=== PATIENT | female | born 1975 | race Caucasian/White ===

== ENCOUNTER 2021-02-27 10:45 | Inpatient (IN) | payer OTHER ==
--- OUTSIDE RECORDS SUMMARY | 2021-02-27 10:50 | XMS REPORT | Continuity of Care Document ---
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[facility] rhinitis [facility] Acute Acute Problem Active [facility] urinary Urinary da tract [facility] Medical infection Infection Grou p Urinary Urinary Problem Active [facility] tract Tract da infectious Infectious Me dical disease Disease Group Fatigue Fatigue Problem Active [facility] Allergies, Adverse Reactions, Alerts Allergy Allergy Status Severity Reaction(s) Onset Inactive Treating Comm ents Source Name Type Date Date Clinician Ultram Allergy Active Itching [facility] Social History Smoking Status Start Date Stop Date Source Never Smoker [facility] Medications Ordered Filled Start Stop Current Ordering Indication Dosage Frequency Signature Comments Components Source Medication Medication Date Date Medication? Clinician (SIG) Name Name citalopram citalopram No citalopram [facility] 20 mg 20 mg 20 mg da tablet TAKE tablet TAKE tablet Medical 1 TABLET BY 1 TABLET BY TAKE 1 Group MOUTH ONCE MOUTH ONCE TABLET BY DAILY DAILY MOUTH ONCE DAILY citalopram citalopram No 1 Q1D citalopram [facility] 40 mg 40 mg 40 mg da tablet Take tablet Take tablet Medical 1 tablet 1 tablet Take 1 Group every day every day tablet by oral by oral every day route. route. by oral route. levothyroxi levothyroxi No levothyrox [facility] ne 75 mcg ne 75 mcg ine 75 mcg da tablet TAKE tablet TAKE tablet Medical 1 TABLET BY 1 TABLET BY TAKE 1 Group MOUTH ONCE MOUTH ONCE TABLET BY DAILY DAILY MOUTH ONCE DIRECTED DIRECTED DAILY DIRECTED metformin metformin No metformin [facility] ER 500 mg ER 500 mg ER 500 mg da tablet,exte tablet,exte tablet,ext Medical nded nded ended Group release 24 release 24 release 24 hr Take 1 hr Take 1 hr Take 1 tablet tablet tablet every day every day every day by oral by oral by oral route. route. route. topiramate topiramate No 1 BID topiramate [facility] 50 mg 50 mg 50 mg da tablet Take tablet Take tablet Medical 1 tablet 1 tablet Take 1 Group twice a day twice a day tablet by oral by oral twice a route. route. day by oral route. Vital Signs Vital Name Observation Time Observation Value Comments Source BP Diastolic 2020-05-16 00:00:00 89 mm[Hg] [facility] Height 2020-05-16 00:00:00 61 [in_i] [facility] BMI (Body Mass 2020-05-16 00:00:00 57.4 kg/m2 [facility] Medical Index) Group BP Systolic 2020-05-16 00:00:00 132 mm[Hg] [facility] Body Weight 2020-05-16 00:00:00 4864 [oz_av] [facility] BP Diastolic 2019-10-27 00:00:00 74 mm[Hg] [facility] Height 2019-10-27 00:00:00 61 [in_i] [facility] BMI (Body Mass 2019-10-27 00:00:00 58.2 kg/m2 [facility] Medical Index) Group BP Systolic 2019-10-27 00:00:00 123 mm[Hg] [facility] Body Weight 2019-10-27 00:00:00 4928 [oz_av] [facility] BP Diastolic 2019-05-13 00:00:00 77 mm[Hg] [facility] Height 2019-05-13 00:00:00 61 [in_i] [facility] BMI (Body Mass 2019-05-13 00:00:00 55.6 kg/m2 [facility] Medical Index) Group BP Systolic 2019-05-13 00:00:00 121 mm[Hg] [facility] Body Weight 2019-05-13 00:00:00 4704 [oz_av] [facility] Procedures Procedure Date / Time Performing Clinician Source Performed MAMMO, screening, digital, 2020-05-16 00:00:00 [facility] MAMMO, screening, digital, 2019-10-27 00:00:00 [facility] Cholecystectomy 2006-08-18 00:00:00 Kat Velazco Plan of Care Planned Activity Planned Date Details Comments Source Diagnostic Test 2020-05-16 BMP, serum or [facility] 00:00:00 plasma [code = BMP, Group serum or plasma] Diagnostic Test 2020-05-16 hemoglobin A1c, QN, [facility] 00:00:00 blood [code = Group hemoglobin A1c, QN, blood] Diagnostic Test 2020-05-16 TSH, serum or [facility] 00:00:00 plasma [code = TSH, Group serum or plasma] Instructions [facility] Encounters Start End Encounter Admission Attending Care Care Encounter Source Date/Time Date/Time Type Type Clinicians Facility Department ID 2020-05-16 2020-05-16 [facility] [place] - [id number] [facility] 00:00:00 00:00:00 Discovery tino Duncan TOLL BOOTH OPERATOR: [address] [place], [place] [address] [facility] [address], [facility] [place] [address] , Ph. 2019-10-27 2019-10-27 Laura [facility] [place] - [id number] M [facility] 00:00:00 00:00:00 Discovery tino Duncan TOLL BOOTH OPERATOR: [address] [place], [place] [address] [facility] [address], [place] [address] , Ph. 2019-05-13 2019-05-13 Laura [facility] [place] - [id number] M [facility] 00:00:00 00:00:00 Discovery tino Duncan TOLL BOOTH OPERATOR: [address] [place] [place] [address] [facility] [address], [place] [address] , Ph. Results This patient has no known results.
[2021-02-27] MEDS ORDERED: ALBUTEROL INHALER 60 PUFF/8 GM IH ONE (11:43)
[2021-02-27] MEDS ORDERED: METHYLPREDNISOLONE 125 MG INJ ONE ×2 (11:43→20:30)
[2021-02-27] MEDS ORDERED: NA CHLORIDE 0.9% 1,000 ML ONE (11:46)
--- NOTE | 2021-02-27 12:10 | RAD REPORT ---
EXAM DESCRIPTION: [facility] Single View02/27/2021 11:45 am CLINICAL HISTORY: Cough COMPARISON: none FINDINGS: Tyyo-wv-zetffeds bilateral pulmonary opacities. Heart is mildly enlarged IMPRESSION: Mild to moderate bilateral pulmonary opacities may represent pneumonia or pulmonary madelin a
[2021-02-27 12:13] LABS: Absolute Lymphocytes (CBC) 0.9 K/uL (0.7-4.9); Basophils % 0.6 % (0-1.3); Hematocrit 42.5 % (36.0-45.0); Lymphocytes % 14.6 % (15.3-44.8); MPV 8.2 fL (7.6-11.3); RBC Red Blood Cell Count 5.05 M/uL (3.86-4.86)
[2021-02-27 12:19] LABS: Protime INR 1.17
[2021-02-27 12:50] LABS: Albumin 3.3 g/dL (3.4-5.0); Bilirubin Direct 0.1 mg/dL (0-0.2); Bilirubin Total 0.3 mg/dL (0.2-1.0); C-Reactive Protein 78.1 mg/L (<3.00); Magnesium 2.1 mg/dL (1.8-2.4); Potassium 3.3 mmol/L (3.5-5.1); Protein, Total 8.3 g/dL (6.4-8.2); Troponin (Emerg Dept Use Only) 0.03 ng/mL (0.0-0.045)
[2021-02-27] MEDS ORDERED: POTASSIUM 25 MEQ EFFERV TAB ONE (13:22)
--- NOTE | 2021-02-27 13:43 | RAD REPORT ---
EXAM DESCRIPTION: CT - Chest For Pe Angio - 02/27/2021 1:20 pm CLINICAL HISTORY: Cough and shortness of breath COMPARISON: February 27, 2021 chest x-ray TECHNIQUE: Dynamically enhanced axial 3 mm thick images of the chest were obtained during administra tion of <100> mL Isovue 370 IV contrast. Coronal and oblique reconstruction images were generated and reviewed. Exam utilizes a protocol for optimal evaluation of pulmonary arterial tree. Maximum intensity projections 3D imaging was utilized All CT scans are performed using dose optimization technique as appropriate and may include automated exposure control or mA/KV adjustment according to patient size. FINDINGS: A pulmonary embolus is not seen. A thoracic aortic aneurysm is not noted. A pleural effusion is not seen. A pericardial effusion is not seen. Moderate patchy ground-glass opacities within the lungs IMPRESSION: Negative for a pulmonary embolism. Moderate patchy ground-glass opacities within the lungs can be seen with pneumonia can be seen with C ovid pneumonia
--- NOTE | 2021-02-27 15:06 | ER ---
[facility] Age: 45 yrs Sex: Female : 1975 Arrival Date: 02/27/2021 Time: 10:49 Bed 27 Private MD: Karissa Castellanos K Diagnosis: Pneumonia due to SARS-associated coronavirus Presentation: 02/27 10:57 Chief complaint: Cough, congestion, SOB, N/V/D, and body aches x 5-6 days, family is hb COVID +. Coronavirus screen: Client presents with at least one sign or symptom that may indicate coronavirus-19. Standard/surgical mask placed on the client. Provider contacted for isolation considerations. Ebola Screen: No symptoms or risks identified at this time. Initial Sepsis Screen: Does the patient meet any 2 criteria? RR > 20 per min. HR > 90 bpm. Yes Does the patient have a suspected source of infection? No. Patient's initial sepsis screen is negative. Risk Assessment: Do you want to hurt yourself or someone else? Patient reports no desire to harm self or others. Onset of symptoms was February 22, 2021. 10:57 Method Of Arrival: Wheelchair hb 10:57 Acuity: JU 2 hb Historical: - Allergies: 10:58 No Known Allergies; hb - Immunization history:: Adult Immunizations up to date. - Social history:: Smoking status: Patient denies any tobacco usage or history of. Screenin:00 Abuse screen: Denies threats or abuse. Nutritional screening: No deficits noted. vg1 Tuberculosis screening: No symptoms or risk factors identified. Fall Risk No fall in past 12 months (0 pts). No secondary diagnosis (0 pts). No IV (0 pts). Ambulatory Aid- None/Bed Rest/Nurse Assist (0 pts). Gait- Normal/Bed Rest/Wheelchair (0 pts) Mental Status- Oriented to own ability (0 pts). Total Morris Fall Scale indicates No Risk (0-24 pts). Assessment: 11:00 General: Appears in no apparent distress. uncomfortable, Behavior is calm, cooperative. vg1 Pain: Complains of pain in lower back Pain currently is 3 out of 10 on a pain scale. Pain began 2-3 days ago. Noted to be grimacing. Neuro: Level of Consciousness is awake, alert, obeys commands, Oriented to person, place, time, situation. Respiratory: Reports shortness of breath cough that is productive, Airway is patent Respiratory effort is even, unlabored, Respiratory pattern is tachypnea Breath sounds are coarse in left posterior lower lobe. GI: Reports diarrhea, nausea, vomiting. : No signs and/or symptoms were reported regarding the genitourinary system. EENT: No signs and/or symptoms were reported regarding the EENT system. Derm: Skin is intact, is healthy with good turgor. Musculoskeletal: Circulation, motion, and sensation intact. 12:04 Reassessment: Patient appears in no apparent distress at this time. blood work sent to lab at this time. Awaiting results. Call light remains within reach. 13:10 Reassessment: Patient appears in no apparent distress at this time. No changes from vg1 previously documented assessment. Patient and/or family updated on plan of care and expected duration. Pain level reassessed. Patient is alert, oriented x 3, equal unlabored respirations, skin warm/dry/pink. 14:04 Reassessment: Received Verbal consent from pt to be given SOLU-medrol 125 mg IVP x1. vg1 14:08 Reassessment: Patient appears in no apparent distress at this time. Patient and/or vg1 family updated on plan of care and expected duration. Pain level reassessed. Patient is alert, oriented x 3, equal unlabored respirations, skin warm/dry/pink. 14:25 Reassessment: Ambulated patient O2 decreased to 90% RA; patient stated felt tired. vg1 Resting O2 95% RA; Provider notified. 15:08 Reassessment: Dr Womack at pt bedside. vg1 Vital Signs: 10:57 BP 130 / 85; Pulse 93; Resp 32; Temp 98.3; Pulse Ox 92% on R/A; Pain 5/10; hb 12:04 BP 118 / 79; Pulse 92; Resp 21; Pulse Ox 94% on R/A; ss 12:30 BP 117 / 81; Pulse 90; Resp 22; Pulse Ox 94% on R/A; vg1 14:08 BP 118 / 73; Pulse 90; Resp 22; Pulse Ox 93% on R/A; vg1 ED Course: 10:49 Patient arrived in ED. mr 10:49 Karissa Castellanos MD is Private Physician. mr 10:52 Florencio Silva PA is PHCP. cp 10:52 Dharmesh Watson MD is Attending Physician. cp 10:54 Francy Perry RN is Primary Nurse. vg1 10:58 Triage completed. hb 10:58 Arm band placed on. hb 11:00 Patient has correct armband on for positive identification. Bed in low position. Call vg1 light in reach. Side rails up X 1. Adult w/ patient. 11:45 XRAY Chest (1 view) In Process Unspecified. EDMS 11:53 Initial lab(s) drawn, by mo, sent to lab. Inserted saline lock: 22 gauge in right vg1 antecubital area, using aseptic technique. Blood collected. 12:02 COVID swab sent to lab. vg1 13:20 CT Chest For PE Angio In Process Unspecified. EDMS 14:56 Beny Womack DO is Hospitalizing Provider. cp 17:12 No provider procedures requiring assistance completed. Patient admitted, IV remains in vg1 place. 17:13 Report given to TRINI Randall. vg1 19:16 Primary Nurse role handed off by Francy Perry, TRINI mw2 02/28 10:10 Inserted saline lock: 22 gauge in left forearm, using aseptic technique. [facility] 03/03 21:00 Called [facility] Main and was transferred to the Covid Unit. Spoke with Carol about tt3 initiating a transfer and she took our number and stated she would speak with their nursing supervisor crack off and have them call us back. Information passed on to JJ Potter, Hospitalist. Administered Medications: 02/27 12:01 Drug: Albuterol HFA Inhaler 2 puffs Route: Inhalation; vg1 14:08 Follow up: Response: No adverse reaction vg1 12:01 Drug: NS 0.9% 1000 ml Route: IV; Rate: 1000 ml/hr; Site: right antecubital; vg1 14:02 Follow up: IV Status: Completed infusion; IV Intake: 1000ml vg1 13:11 Drug: Potassium Effervescent Tablet 50 mEq Route: PO; vg1 14:07 Follow up: Response: No adverse reaction vg1 14:06 Drug: SOLU-Medrol (methylPrednisoLONE) 125 mg Route: IVP; Site: right antecubital; vg1 15:17 Follow up: Response: No adverse reaction vg1 Intake: 14:02 IV: 1000ml; Total: 1000ml. vg1 Outcome: 15:05 Decision to Hospitalize by Provider. cp 17:12 Admitted to ER Hold. Please see [facility] for further documentation. vg1 17:12 Condition: stable 17:12 Instructed on the need for admit. 03/04 15:25 Patient left the ED. eb Signatures: Dispatcher [employer] [facility] Lisette SaucedoLor mckeon, RN RN Florencio Capone PA PA cp Baxter, Heather, RN RN Odilia Hammonds [address] Zehra Garcia Victoria, RN RN vg1 Perry Vo tt3 Corrections: (The following items were deleted from the chart) 02/27 14:30 14:25 Reassessment: Ambulated patient O2 decreased to 90% RA; patient stated felt vg1 tired. Provider notified. vg1
--- NOTE | 2021-02-27 15:06 | EDPHYS ---
Physician Documentation [facility] Name: Margot Abdalla Age: 45 yrs Sex: Female : 1975 Arrival Date: 02/27/2021 Time: 10:49 Bed 27 Private MD: Karissa Castellanos K ED Physician Dharmesh Watson HPI: 02/27 11:10 This 45 yrs old Female presents to ER via Wheelchair with complaints of cp COVID+, Shortness Of Breath. 11:10 The patient has shortness of breath at rest. cp 11:10 Onset: The symptoms/episode began/occurred 5 day(s) ago, and became worse today. cp Duration: The symptoms are continuous, and are steadily getting worse. Associated signs and symptoms: Pertinent positives: non-productive cough, Pertinent negatives: chest pain, fever. Severity of symptoms: in the emergency department the symptoms are unchanged despite home interventions. Patient reports multiple family members recently diagnosed with COVID-19. Historical: - Allergies: 10:58 No Known Allergies; hb - Immunization history:: Adult Immunizations up to date. - Social history:: Smoking status: Patient denies any tobacco usage or history of. ROS: 11:15 Constitutional: Negative for body aches, chills, fever, poor PO intake. cp 11:15 Eyes: Negative for injury, pain, redness, and discharge. cp 11:15 ENT: Negative for ear pain, sore throat, difficulty swallowing, difficulty handling secretions. 11:15 Cardiovascular: Negative for chest pain, edema, palpitations. 11:15 Respiratory: Positive for cough, with no reported sputum, shortness of breath, Negative for wheezing. 11:15 Abdomen/GI: Negative for abdominal pain, nausea, vomiting, and diarrhea. 11:15 Back: Negative for radiated pain. 11:15 : Negative for urinary symptoms. 11:15 Neuro: Negative for altered mental status, headache, syncope, weakness. 11:15 All other systems are negative. Exam: 11:20 Constitutional: The patient appears in no acute distress, alert, awake, cp non-diaphoretic, non-toxic, well developed, well nourished, obese. 11:20 Head/Face: Normocephalic, atraumatic. cp 11:20 Eyes: Periorbital structures: appear normal, Conjunctiva: normal, no exudate, no injection, Sclera: no appreciated abnormality, Lids and lashes: appear normal, bilaterally. 11:20 ENT: External ear(s): are unremarkable, Nose: is normal, Mouth: Lips: moist, Oral mucosa: pink and intact, moist, Posterior pharynx: Airway: no evidence of obstruction, patent. 11:20 Neck: ROM/movement: is normal, is supple, no meningismus, no nuchal rigidity. 11:20 Chest/axilla: Inspection: normal, Palpation: is normal, no crepitus, no tenderness. 11:20 Cardiovascular: Rate: normal, Rhythm: regular, Edema: is not appreciated, JVD: is not appreciated. 11:20 Respiratory: the patient does not display signs of respiratory distress, Respirations: shallow respirations, that is mild, Breath sounds: bronchial sounds, that are mild, are heard diffusely, decreased breath sounds, that are mild, diffuse, wheezing: is not appreciated. 11:20 Abdomen/GI: Inspection: abdomen appears normal, Palpation: abdomen is soft and non-tender, in all quadrants. 11:20 Back: pain, is absent, ROM is normal. 11:20 Skin: no rash present. 11:20 Neuro: Orientation: to person, place \T\ time. Mentation: is normal, Motor: moves all fours, strength is normal. 11:40 ECG was reviewed by the Attending Physician. cp Vital Signs: 10:57 BP 130 / 85; Pulse 93; Resp 32; Temp 98.3; Pulse Ox 92% on R/A; Pain 5/10; hb 12:04 BP 118 / 79; Pulse 92; Resp 21; Pulse Ox 94% on R/A; ss 12:30 BP 117 / 81; Pulse 90; Resp 22; Pulse Ox 94% on R/A; vg1 14:08 BP 118 / 73; Pulse 90; Resp 22; Pulse Ox 93% on R/A; vg1 MDM: 11:00 Patient medically screened. cp 12:00 Differential diagnosis: bronchitis, flu, URI, pneumonia, pulmonary edema, Pulmonary cp Embolism Sepsis. 15:00 Data reviewed: vital signs, nurses notes, lab test result(s), EKG, radiologic studies, cp CT scan, plain films. 15:00 Test interpretation: by ED physician or midlevel provider: ECG, plain radiologic cp studies. Counseling: I had a detailed discussion with the patient and/or guardian regarding: the historical points, exam findings, and any diagnostic results supporting the discharge/admit diagnosis, lab results, radiology results, the need for further work-up and treatment in the hospital. Response to treatment: the patient's symptoms have mildly improved after treatment. 02/27 11:08 Order name: Basic Metabolic Panel; Complete Time: 12:55 cp 02/27 11:08 Order name: CBC with Diff; Complete Time: 12:26 cp 02/27 11:08 Order name: LFT's; Complete Time: 12:55 cp 02/27 11:08 Order name: Magnesium; Complete Time: 12:55 cp 02/27 11:08 Order name: NT PRO-BNP; Complete Time: 12:55 cp 02/27 11:08 Order name: PT-INR; Complete Time: 12:55 cp 02/27 11:08 Order name: Troponin (emerg Dept Use Only); Complete Time: 12:55 cp 02/27 11:08 Order name: CRP; Complete Time: 12:55 cp 02/27 11:08 Order name: Ferritin; Complete Time: 12:55 cp 02/27 11:09 Order name: D-Dimer; Complete Time: 12:55 cp 02/27 13:57 Order name: SARS-COV-2 RT PCR; Complete Time: 14:01 EDMS 02/27 18:02 Order name: Urine Dipstick-Ancillary EDMS 02/27 18:14 Order name: Glucose, Ancillary Testing EDMS 02/27 19:41 Order name: Glucose, Ancillary Testing EDMS 02/28 06:49 Order name: CBC with Automated Diff EDMS 02/28 06:49 Order name: Comprehensive Metabolic Panel EDMS 02/28 06:49 Order name: T4 Free EDMS 02/28 06:49 Order name: Magnesium EDMS 02/28 06:49 Order name: Thyroid Stimulating Hormone EDMS 02/28 08:54 Order name: Glucose, Ancillary Testing EDMS 02/28 12:00 Order name: Glucose, Ancillary Testing EDMS 02/28 16:10 Order name: Glucose, Ancillary Testing EDMS 02/28 20:03 Order name: Glucose, Ancillary Testing EDMS 03/01 04:09 Order name: CBC with Automated Diff EDMS 03/01 04:13 Order name: Comprehensive Metabolic Panel EDMS 03/01 04:13 Order name: Magnesium EDMS 03/01 05:24 Order name: Manual Differential EDMS 03/01 07:46 Order name: Glucose, Ancillary Testing EDMS 03/01 11:18 Order name: Glucose, Ancillary Testing EDMS 02/27 11:08 Order name: XRAY Chest (1 view); Complete Time: 12:26 cp 02/27 12:26 Interpretation: Report reviewed. cp 02/27 12:56 Order name: CT Chest For PE Angio; Complete Time: 14:01 cp 03/01 15:50 Order name: Hemoglobin A1c EDMS 03/01 16:20 Order name: Glucose, Ancillary Testing EDMS 03/01 21:21 Order name: Glucose, Ancillary Testing EDMS 03/02 05:17 Order name: CBC with Automated Diff EDMS 03/02 05:30 Order name: Basic Metabolic Panel EDMS 03/02 05:30 Order name: C-Reactive Protein EDMS 03/02 05:30 Order name: Ferritin EDMS 03/02 07:51 Order name: Glucose, Ancillary Testing EDMS 03/02 12:11 Order name: Glucose, Ancillary Testing EDMS 03/02 16:55 Order name: Glucose, Ancillary Testing EDMS 03/02 21:14 Order name: Glucose, Ancillary Testing EDMS 03/03 05:14 Order name: D-Dimer EDMS 03/03 06:00 Order name: CBC with Automated Diff EDMS 03/03 06:33 Order name: Comprehensive Metabolic Panel EDMS 03/03 06:33 Order name: NT PRO-BNP EDMS 03/03 06:33 Order name: C-Reactive Protein EDMS 03/03 06:33 Order name: Magnesium EDMS 03/03 06:33 Order name: Ferritin EDMS 03/03 08:08 Order name: Glucose, Ancillary Testing EDMS 03/03 08:11 Order name: Procalcitonin EDMS 03/03 12:01 Order name: Glucose, Ancillary Testing EDMS 03/03 17:21 Order name: Glucose, Ancillary Testing EDMS 03/03 21:49 Order name: Glucose, Ancillary Testing EDMS 03/04 06:26 Order name: CBC with Automated Diff EDMS 03/04 06:48 Order name: Comprehensive Metabolic Panel EDMS 03/04 06:48 Order name: C-Reactive Protein EDMS 03/04 06:48 Order name: Ferritin EDMS 03/04 07:56 Order name: Glucose, Ancillary Testing EDMS 03/04 08:21 Order name: Manual Differential EDNC 03/04 11:44 Order name: Glucose, Ancillary Testing EDNC 02/27 11:08 Order name: EKG; Complete Time: 11:09 cp 02/27 11:08 Order name: Cardiac monitoring; Complete Time: 11:41 cp 02/27 11:08 Order name: EKG - Nurse/Tech; Complete Time: 11:41 cp 02/27 11:08 Order name: IV Saline Lock; Complete Time: 12:01 cp 02/27 11:08 Order name: Labs collected and sent; Complete Time: 12:01 cp 02/27 11:08 Order name: O2 Per Protocol; Complete Time: 11:15 cp 02/27 11:08 Order name: O2 Sat Monitoring; Complete Time: 11:15 cp 02/27 11:08 Order name: Urine Dipstick-Ancillary (obtain specimen); Complete Time: 17:54 cp 02/27 11:08 Order name: Urine Test (obtain specimen); Complete Time: 17:54 cp 02/27 14:09 Order name: Misc. Order: ambulate patient with pulse ox; Complete Time: 14:25 cp 03/02 07:14 Order name: RAD EDMS 03/03 07:08 Order name: RAD EDMS EC:40 Rate is 92 beats/min. Rhythm is regular. CA interval is normal. QRS interval is normal. cp QT interval is normal. Interpreted by me. Reviewed by me. Administered Medications: 12:01 Drug: Albuterol HFA Inhaler 2 puffs Route: Inhalation; vg1 14:08 Follow up: Response: No adverse reaction vg1 12:01 Drug: NS 0.9% 1000 ml Route: IV; Rate: 1000 ml/hr; Site: right antecubital; vg1 14:02 Follow up: IV Status: Completed infusion; IV Intake: 1000ml vg1 13:11 Drug: Potassium Effervescent Tablet 50 mEq Route: PO; vg1 14:07 Follow up: Response: No adverse reaction vg1 14:06 Drug: SOLU-Medrol (methylPrednisoLONE) 125 mg Route: IVP; Site: right antecubital; vg1 15:17 Follow up: Response: No adverse reaction vg1 Disposition: 07/18 17:34 Co-signature as Attending Physician, Dharmesh Watson MD I agree with the assessment and rn plan of care. Attestation: The patient's history, exam findings, diagnostics, and a summary of any interventions or procedures was reviewed in detail with Florencio GARDNER. Disposition Summary: 02/27/21 15:05 Hospitalization Ordered Hospitalization Status: Inpatient Admission cp Provider: Beny Womack cp Condition: Stable cp Problem: new cp Symptoms: have improved cp Bed/Room Type: Standard cp Location: Intensive Care Unit(03/04/21 14:55) dw Room Assignment: 4-(03/04/21 14:55) dw Diagnosis - Pneumonia due to SARS-associated coronavirus cp Forms: - Medication Reconciliation Form cp - SBAR form cp Signatures: Dispatcher [employer] EDMS Radha Dumont, RN RN Dharmesh Torres MD MD rn Smirch, Shelby, RN RN ss Page, Corey, PA PA cp Baxter, Heather RN Francy Almazan RN RN vg1 Corrections: (The following items were deleted from the chart) 02/27 12:49 11:11 CORONAVIRUS+MR.LAB.BRZ ordered. EDNC EDMS 16:21 15:05 Telemetry/MedSurg (Inpatient) cp ss 16:21 15:05 cp ss 03/04 14:55 02/27 16:21 [facility] ER HOLD ss dw 03/04 14:55 02/27 16:21 ERHOLD- ss
--- NOTE | 2021-02-27 15:39 | P.HP ---
Certification for Inpatient Patient admitted to: Observation With expected LOS: <2 Midnights Patient will require the following post-hospital care: Other (Home oxygen) Practitioner: I am a practitioner with admitting privileges, knowledge of patient current condition, hospital course, and medical plan of care. Services: Services provided to patient in accordance with Admission requirements found in Title 42 Section 412.3 of the Code of Federal Regulations Patient History Date of Service: 02/27/21 Primary Care Provider: Dr. Castellanos Reason for admission: Dyspnea History of Present Illness: 45-year-old with history of obesity, prediabetes, depression and hypothyroidism. Patient presented with increasing shortness of breath, cough. Patient also reports some nausea, diarrhea. Multiple family member sick with Covid 19. She reported increased shortness of breath with exertion. Increased fatigue, body aches. Her symptoms were worsening so she came to the ER for further evaluation. She is unvaccinated. In the ER patient was evaluated. Vital signs stable. Upon ambulation patient had some desaturations below 88%. Lab White count 6.0, hemoglobin 14. Bili count 220. Sodium 139, potassium 3.3. BUN of 8, creatinine 0.83 with a GFR 75. Glucose 101. AST 147, ALT 107, alk phos 141. Troponin 0.3. C-reactive p rotein 78, ferritin 730. Patient positive for Covid. D-dimer 540. CT scan reveals moderate Covid pneumonia. Negative for pulmonary believes him. Patient given IV Solu-Medrol in the emergency room. Patient admitted for observation. Home medications list reviewed: Yes - Past Medical/Surgical History Diabetic: No -: Prediabetes -: Hypothyroidism -: Depression -: Obesity -: Cholecystectomy Psychosocial/ Personal History: Patient is . - Family History Family History: Reviewed- Non-Contributory - Social History Smoking Status: Never smoker Alcohol use: No CD- Drugs: No Caffeine use: No Place of Residence: Home Review of Systems General: Fever, Chills, Sweats, Weakness, Malaise, As per HPI Eyes: Unremarkable ENT: Unremarkable Respiratory: Cough, Shortness of Breath, SOB with Excertion, As per HPI Cardiovascular: Unremarkable Gastrointestinal: Nausea, Vomiting, Diarrhea, As per HPI Genitourinary: Unremarkable Musculoskeletal: Unremarkable Integumentary: Unremarkable Neurological: As per HPI Lymphatics: Unremarkable Physical Examination - Studies Laboratory Data (last 24 hrs) 02/27/21 11:53: PT 13.5 H, INR 1.17 02/27/21 11:53: WBC 6.00, Hgb 14.1, Hct 42.5, Plt Count 220 02/27/21 11:53: Sodium 139, Potassium 3.3 L, BUN 8, Creatinine 0.83, Glucose 101, Magnesium 2.1, Total Bilirubin 0.3, AST 147 H, ALT 107 H, Alkaline Phosphatase 141 H Assessment and Plan - Plan CT scan: COMPARISON: February 27, 2021 chest x-ray TECHNIQUE: Dynamically enhanced axial 3 mm thick images of the chest were obtained during administration of <100> mL Isovue 370 IV contrast. Coronal and oblique reconstruction images were generated and reviewed. Exam utilizes a protocol for optimal evaluation of pulmonary arterial tree. Maximum intensity projections 3D imaging was utilized All CT scans are performed using dose optimization technique as appropriate and may include automated exposure control or mA/KV adjustment according to patient size. FINDINGS: A pulmonary embolus is not seen. A thoracic aortic aneurysm is not noted. A pleural effusion is not seen. A pericardial effusion is not seen. Moderate patchy ground-glass opacities within the lungs IMPRESSION: Negative for a pulmonary embolism. Moderate patchy ground-glass opacities within the lungs can be seen with pneumonia can be seen with Covid pneumonia Physical Exam: GENERAL: The patient is a well-developed, well-nourished, in no apparent distress. Alert and oriented x3. VITAL SIGNS: Reviewed HEENT: Head is normocephalic and atraumatic. Extraocular muscles are intact. Pupils are equal, round, and reactive to light and accommodation. Nares appeared normal. Mouth is well hydrated and without lesions. Mucous membranes are moist. NECK: Supple. No carotid bruits. No lymphadenopathy or thyromegaly. LUNGS: Patient does not appear in any respiratory distress. Currently on room air. HEART: Regular rate and rhythm noted on monitor. ABDOMEN: Soft, nontender, and nondistended. Positive bowel sounds. No hepatosplenomegaly was noted. Patient morbidly obese. EXTREMITIES: Without any cyanosis, clubbing, rash, lesions or peripheral edema. NEUROLOGIC: The patient is oriented to person, place and time. Strength and sensation are grossly intact. Face is symmetric. SKIN: Normal color, turgor and temperature. No ulcerations or rashes noted. Impression: Dyspnea, fatigue, nausea, diarrhea secondary to bilateral Covid pneumonia with hypoxia, unvaccinated Prediabetes Elevated liver function suspect underlying fatty liver disease Hypothyroidism Depression Obesity Plan: Dyspnea, fatigue, nausea, diarrhea secondary to bilateral Covid pneumonia with hypoxia, unvaccinated: Patient will be admitted for further evaluation and treatment. Maintain oxygen saturations above 93%. Monitor closely on telemetry. Will monitor and trend ferritin, CRP and lab. Will continue with IV Solu-Medrol and vitamin supplementation. Patient not a candidate for remdesivir, acterma, or baricitinib due to her elevated liver function if needed. Suspect elevated liver function related to fatty liver disease. DVT prophylaxis in placeLovenox. Start lactobacillus. Provide Pepcid. Will also provide aspirin daily, cough medication as needed, and albuterol/Atrovent as needed. Patient with obesity. Restart home medication for prediabetes, depression and hypothyroidism. Encourage proning, incentive spirometer, and ambulation. Anticipate continued improvement. Will consult pulmonology for further recommendation. Will reassess tomorrow for possible discharge with home oxygen. I will turn the service over to the hospitalist team tomorrow. I will go over the plan of care with him. Prediabetes: Will check A1c. Will continue Metformin. Elevated liver function suspect underlying fatty liver disease: Suspect underlying fatty liver disease. Will monitor liver function test closely. Hypothyroidism: Obtain and restart home medication Depression: Restart home medicationLexapro Obesity: Will calculate BMI. Lifestyle modification education provided. Code Status: Full Code DVT prophylaxis: Lovenox Advanced Care Planning-30 minutes: Home at discharge with home oxygen. Discharge Plan: Home Plan to discharge in: 24 Hours - Advance Directives Does patient have a Living Will: No Does patient have a Durable POA for Healthcare: No - Code Status/Comfort Care Code Status Assessed: Yes (Full code) Time Spent Managing Pts Care (In Minutes): 55
[2021-02-27] MEDS ORDERED: IPRATROPIUM BROM 0.5MG/2.5ML NEB PRN (17:48)
[2021-02-27] MEDS: METHYLPREDNISOLONE 125 MG INJ IV SCH (17:48)
[2021-02-27] MEDS: INSULIN -REGULAR HUMAN 50 UNIT/0.5 ML ML SQ SCH ×2 (17:48→20:00)
[2021-02-27] MEDS ORDERED: ONDANSETRON 4 MG/2 ML VIAL IV PRN (17:48)
[2021-02-27] MEDS ORDERED: ALBUTEROL 2.5 MG/3 ML NEB SOL NEB PRN (17:48)
[2021-02-27 18:01] LABS: Urine Blood 3+ (Negative); Urine Glucose Negative (Negative); Urine Protein 2+ (Negative); Urine pH 7.5 (5.0-7.0)
[2021-02-27] MEDS: ENOXAPARIN 40 MG/0.4 ML SQ SCH (18:33)
[2021-02-27] MEDS ORDERED: ENOXAPARIN 40 MG/0.4 ML SQ ONE (18:54)
[2021-02-27] MEDS ORDERED: ASCORBIC ACID 500 MG TABLET ONE (20:31)
[2021-02-27] MEDS ORDERED: FAMOTIDINE 20 MG TAB ONE (20:31)
[2021-02-27] MEDS ORDERED: THIAMINE HCL 100 MG TABLET ONE (20:31)
[2021-02-27] MEDS ORDERED: ACETAMINOPHEN 500 MG TAB ONE ×2 (20:35→22:20)
[2021-02-27] MEDS ORDERED: BENZONATATE 100 MG CAP PO ONE (20:35)
[2021-02-27] MEDS ORDERED: LACTOBACILLUS/ACIDOPHILUS TAB ONE (20:39)
[2021-02-27] MEDS: ACETAMINOPHEN 500 MG TAB PO PRN ×2 (20:39→22:00)
[2021-02-27] MEDS: FAMOTIDINE 20 MG TAB PO SCH (20:39)
[2021-02-27] MEDS: ASCORBIC ACID 500 MG TABLET PO SCH (20:40)
[2021-02-27] MEDS: LACTOBACILLUS/ACIDOPHILUS TAB PO SCH (20:40)
[2021-02-27] MEDS: THIAMINE HCL 100 MG TABLET PO SCH (20:41)
[2021-02-27] MEDS: BENZONATATE 100 MG CAP PO PRN (20:41)
[2021-02-28] MEDS: METHYLPREDNISOLONE 125 MG INJ IV SCH ×3 (00:51→17:00)
[2021-02-28] MEDS: BENZONATATE 100 MG CAP PO PRN (06:11)
[2021-02-28 06:15] LABS: Absolute Lymphocytes (CBC) 1.4 K/uL (0.7-4.9); Basophils % 0.3 % (0-1.3); Hematocrit 39.2 % (36.0-45.0); Lymphocytes % 32.6 % (15.3-44.8); MPV 8.2 fL (7.6-11.3); RBC Red Blood Cell Count 4.62 M/uL (3.86-4.86)
[2021-02-28 06:26] LABS: ALT/SGPT 88 U/L (12-78); AST/SGOT 101 U/L (15-37); Albumin 2.9 g/dL (3.4-5.0); Alkaline Phosphatase 131 U/L (45-117); BUN Blood Urea Nitrogen 9 mg/dL (7-18); Bicarbonate 27 mmol/L (21-32); Bilirubin Total 0.3 mg/dL (0.2-1.0); Glucose Level 119 mg/dL (74-106); Magnesium 2.5 mg/dL (1.8-2.4); Potassium 3.8 mmol/L (3.5-5.1); Protein, Total 7.8 g/dL (6.4-8.2); Sodium Level 142 mmol/L (136-145); Thyroid Stimulating Hormone 0.648 uIU/mL (0.360-3.740)
[2021-02-28] MEDS ORDERED: BENZONATATE 100 MG CAP PO ONE (06:29)
[2021-02-28] MEDS ORDERED: LEVOTHYROXINE SOD 0.075 MG TAB PO SCH (06:30)
[2021-02-28] MEDS: INSULIN -REGULAR HUMAN 50 UNIT/0.5 ML ML SQ SCH ×4 (07:30→21:00)
[2021-02-28] MEDS: LACTOBACILLUS/ACIDOPHILUS TAB PO SCH ×2 (09:00→21:00)
[2021-02-28] MEDS: ESCITALOPRAM 20 MG TAB PO SCH ×2 (09:00→13:50)
[2021-02-28] MEDS: FAMOTIDINE 20 MG TAB PO SCH ×2 (09:21→21:00)
[2021-02-28] MEDS: ZINC SULFATE 220 MG CAP PO SCH (09:21)
[2021-02-28] MEDS: VITAMIN D 1000 UNIT TAB PO SCH ×2 (09:21→09:25)
[2021-02-28] MEDS: ENOXAPARIN 40 MG/0.4 ML SQ SCH (09:21)
[2021-02-28] MEDS: ASPIRIN EC 81 MG TAB PO SCH (09:21)
[2021-02-28] MEDS: ASCORBIC ACID 500 MG TABLET PO SCH ×3 (09:22→21:00)
[2021-02-28] MEDS: METFORMIN HCL 500 MG TAB PO SCH (09:22)
[2021-02-28] MEDS: THIAMINE HCL 100 MG TABLET PO SCH ×2 (09:25→21:00)
[2021-02-28] MEDS ORDERED: ZINC SULFATE 220 MG CAP ONE (09:37)
[2021-02-28] MEDS ORDERED: METFORMIN HCL 500 MG TAB ONE (09:37)
[2021-02-28] MEDS ORDERED: METHYLPREDNISOLONE 40 MG INJ ONE ×2 (09:38→17:14)
[2021-02-28] MEDS ORDERED: ASPIRIN EC 81 MG TAB PO ONE (09:38)
[2021-02-28] MEDS ORDERED: VITAMIN D 1000 UNIT TAB ONE ×2 (09:38→09:45)
[2021-02-28] MEDS ORDERED: ASCORBIC ACID 500 MG TABLET ONE ×2 (09:38→14:10)
[2021-02-28] MEDS ORDERED: FAMOTIDINE 20 MG TAB ONE (09:38)
[2021-02-28] MEDS ORDERED: ENOXAPARIN 40 MG/0.4 ML SQ ONE (09:39)
[2021-02-28] MEDS ORDERED: THIAMINE HCL 100 MG TABLET ONE (09:45)
--- NOTE | 2021-02-28 12:42 | EKG ---
Test Date: 2021-02-27 Test Time: 11:34:15 Ethernet Network Architect: SOUMYA MEASUREMENT RESULTS: Intervals: Rate: 92 OK: 136 QRSD: 84 QT: 444 QTc: 549 [place]: P: 51 OK: 136 QRS: 29 T: 41 INTERPRETIVE STATEMENTS: Normal sinus rhythm Nonspecific ST and T wave abnormality Prolonged QT Abnormal ECG No previous ECG available for comparison Electronically Signed On 02-28-21 12:37:50 CDT by Gregg Vargas
[2021-02-28] MEDS ORDERED: ALBUTEROL INHALER 60 PUFF/8 GM IH PRN (16:41)
--- NOTE | 2021-02-28 18:50 | P.CNS ---
Date of Consult: 02/28/21 Reason for Consult: REsp failure Primary Care Provider: Dr. Castellanos Chief Complaint: Resp failure History of Present Illness: Age 45 metabolic syn AW resp failure from COVID. Feeling better/ oxygenation satisfactory Allergies tramadol [From Ultram] Allergy (Verified 02/27/21 15:58) Hives/Rash Home Medications: Escitalopram [Lexapro*] 20 mg PO DAILY 02/27/21 Levothyroxine [Synthroid*] 0.075 mg PO DAILY 02/27/21 Metformin HCl 500 mg PO DAILY 02/27/21 Topiramate 25 mg PO DAILY 02/27/21 - Past Medical/Surgical History Diabetic: No -: Prediabetes -: Hypothyroidism -: Depression -: Obesity -: Cholecystectomy Psychosocial/ Personal History: Patient is . - Social History Alcohol use: No CD- Drugs: No Caffeine use: No Place of Residence: Home Review of Systems Respiratory: Shortness of Breath Physical Examination Temp Pulse Resp BP Pulse Ox 97.9 F 73 20 109/66 94 02/28/21 16:00 02/28/21 16:00 02/28/21 16:00 02/28/21 16:00 02/28/21 16:00 Laboratory Data (last 24 hrs) 02/28/21 05:42: Sodium 142, Potassium 3.8, BUN 9, Creatinine 0.55, Glucose 119 H, Magnesium 2.5 H, Total Bilirubin 0.3, AST 101 H, ALT 88 H, Alkaline Phosphatase 131 H 02/28/21 05:42: WBC 4.20 L D, Hgb 13.0, Hct 39.2, Plt Count 238 - Problems (1) COVID Current Visit: Yes Status: Acute Plan: Age 45 AW resp failure from COVID Doign much better/ Labs reivewed/ CT scan consistent with COVID. Poss D/C am On o2/ Abnormal LFT. Poss DC am CW pred 20 BID for 1 wk then 10 BID
[2021-02-28] MEDS ORDERED: ACETAMINOPHEN 500 MG TAB ONE (20:46)
[2021-03-01] MEDS: METHYLPREDNISOLONE 125 MG INJ IV SCH ×3 (01:00→16:02)
[2021-03-01] MEDS ORDERED: METHYLPREDNISOLONE 125 MG INJ ONE ×3 (01:22→13:59)
[2021-03-01 04:00] LABS: Absolute Lymphocytes (CBC) 1.3 K/uL (0.7-4.9); Basophils % 0.2 % (0-1.3); Hematocrit 38.1 % (36.0-45.0); Lymphocytes % 9.9 % (15.3-44.8); MPV 8.4 fL (7.6-11.3); RBC Red Blood Cell Count 4.53 M/uL (3.86-4.86)
[2021-03-01 04:13] LABS: ALT/SGPT 75 U/L (12-78); AST/SGOT 70 U/L (15-37); Albumin 2.8 g/dL (3.4-5.0); Alkaline Phosphatase 110 U/L (45-117); BUN Blood Urea Nitrogen 11 mg/dL (7-18); Bicarbonate 27 mmol/L (21-32); Bilirubin Total 0.4 mg/dL (0.2-1.0); Glucose Level 126 mg/dL (74-106); Magnesium 2.3 mg/dL (1.8-2.4); Potassium 3.3 mmol/L (3.5-5.1); Protein, Total 7.4 g/dL (6.4-8.2); Sodium Level 141 mmol/L (136-145)
[2021-03-01 05:24] LABS: Blood Morphology Comment NOT SEEN (NOT SEEN); Platelet Estimate ADEQ
[2021-03-01] MEDS: INSULIN -REGULAR HUMAN 50 UNIT/0.5 ML ML SQ SCH ×4 (07:30→21:00)
[2021-03-01] MEDS ORDERED: ZINC SULFATE 220 MG CAP ONE (07:38)
[2021-03-01] MEDS ORDERED: METFORMIN HCL 500 MG TAB ONE (07:38)
[2021-03-01] MEDS ORDERED: THIAMINE HCL 100 MG TABLET ONE (07:38)
[2021-03-01] MEDS ORDERED: ASPIRIN EC 81 MG TAB PO ONE (07:39)
[2021-03-01] MEDS ORDERED: VITAMIN D 1000 UNIT TAB ONE (07:39)
[2021-03-01] MEDS ORDERED: ENOXAPARIN 40 MG/0.4 ML SQ ONE (07:39)
[2021-03-01] MEDS ORDERED: FAMOTIDINE 20 MG TAB ONE ×2 (07:39→21:36)
[2021-03-01] MEDS ORDERED: ASCORBIC ACID 500 MG TABLET ONE ×3 (07:39→21:35)
[2021-03-01] MEDS: VITAMIN D 1000 UNIT TAB PO SCH (08:04)
[2021-03-01] MEDS: METFORMIN HCL 500 MG TAB PO SCH (08:04)
[2021-03-01] MEDS: ENOXAPARIN 40 MG/0.4 ML SQ SCH (08:04)
[2021-03-01] MEDS: ZINC SULFATE 220 MG CAP PO SCH (08:04)
[2021-03-01] MEDS: FAMOTIDINE 20 MG TAB PO SCH ×2 (08:04→21:00)
[2021-03-01] MEDS: ASPIRIN EC 81 MG TAB PO SCH (08:04)
[2021-03-01] MEDS: ASCORBIC ACID 500 MG TABLET PO SCH ×3 (08:04→21:00)
[2021-03-01] MEDS: THIAMINE HCL 100 MG TABLET PO SCH ×2 (08:04→21:00)
[2021-03-01] MEDS: LEVOTHYROXINE SOD 0.075 MG TAB PO SCH (08:07)
[2021-03-01] MEDS: ESCITALOPRAM 20 MG TAB PO SCH (08:08)
[2021-03-01] MEDS: LACTOBACILLUS/ACIDOPHILUS TAB PO SCH ×2 (08:08→21:00)
[2021-03-01] MEDS: ACETAMINOPHEN 500 MG TAB PO PRN ×2 (13:57→21:15)
[2021-03-01] MEDS ORDERED: ACETAMINOPHEN 500 MG TAB ONE ×2 (14:18→21:36)
--- NOTE | 2021-03-01 17:31 | P.PN ---
Subjective Date of Service: 02/28/21 Patient' s chart was reviewed. Patient was admitted for COVID-19 pneumonia. Bilateral lower lobe infiltrates. Patient's clinical condition is stable. Still requiring oxygen and will see how she tapers over the next 24-48 hr. Review of Systems 10-point ROS is otherwise unremarkable Physical Examination - Vital Signs Temperature: 98.4 F Blood Pressure: 112/67 Pulse: 77 Respirations: 23 Pulse Ox (%): 90 - Physical Exam General: Alert, In no apparent distress, Oriented x3 Respiratory: Diminished Cardiovascular: Regular rate/rhythm, Normal S1 S2, No murmurs Gastrointestinal: Normal bowel sounds, Soft and benign, Non-distended, No tenderness Musculoskeletal: No clubbing, No swelling, No tenderness Neurological: Sensation intact, Cranial nerves 3-12 intact Lymphatics: No axilla or inguinal lymphadenopathy - Studies Medications List Reviewed: Yes Assessment & Plan - Problems (Diagnosis) (1) Pneumonia due to COVID-19 virus Current Visit: Yes Status: Acute (2) Hypoxemia Current Visit: Yes Status: Acute - Plan 1. Continue with IV steroids 2. Monitor inflammatory markers 3. Repeat chest x-ray is symptoms are progressively worsening 4. O2 per protocol 5. Pulmonary consultation 6. Continue with albuterol inhaler therapy; also supportive care 7. Monitor LFTs 8. GI and DVT prophylaxis Discharge Plan: Home Plan to discharge in: Greater than 2 days - Advance Directives Does patient have a Living Will: No Does patient have a Durable POA for Healthcare: No - Code Status/Comfort Care Code Status Assessed: Yes Code Status: Full Code Critical Care: No Time Spent Managing PTS Care (In Minutes): 35
--- NOTE | 2021-03-01 17:32 | P.PN ---
Date of Service: 03/01/21 Subjective Patient states she is feeling better. However, her oxygen requirements have increased. She is on 4-5 L at this time. She is not ready for discharge. LFTs were initially elevated. Currently they are improved. May be able to start antiviral therapy. Will go ahead and continue with IV steroids and ivermectin per Pulmonary recommendation. Review of Systems 10-point ROS is otherwise unremarkable Physical Examination - Vital Signs reviewed - Physical Exam General: Alert, In no apparent distress, Oriented x3; gets really tachypneic on getting out of bed; obesity Respiratory: Diminished Cardiovascular: Regular rate/rhythm, Normal S1 S2, No murmurs Gastrointestinal: Normal bowel sounds, Soft and benign, Non-distended, No tenderness Musculoskeletal: No clubbing, No swelling, No tenderness Neurological: Generalized weakness Assessment & Plan - Problems (Diagnosis) (1) Pneumonia due to COVID-19 virus Current Visit: Yes Status: Acute (2) Hypoxemia Current Visit: Yes Status: Acute (3) Morbid obesity Current Visit: Yes Status: Acute - Plan Continue with plan of care as mentioned below: 1. Continue with IV steroids 2. Monitor inflammatory markers 3. Repeat chest x-ray is symptoms are progressively worsening 4. O2 per protocol 5. Pulmonary consultation appreciated 6. Continue with albuterol inhaler therapy; also supportive care; added ivermectin; because of elevated LFTs holding Remdesivir. But these are normalized at this time 7. Attempt to wean down oxygen levels 8. GI and DVT prophylaxis
--- NOTE | 2021-03-01 22:10 | P.PN ---
Subjective Date of Service: 03/01/21 Primary Care Provider: Dr. Castellanos Chief Complaint: Resp failure Subjective: Improving (Improving/ pos Dc) Physical Examination - Vital Signs Temperature: 98.4 F Blood Pressure: 112/67 Pulse: 73 Respirations: 23 Pulse Ox (%): 90 - Studies Medications List Reviewed: Yes Assessment & Plan - Problems (Diagnosis) (1) COVID Current Visit: Yes Status: Acute Plan: Age 45 AW resp failure from COVID Doign much better/ Labs reivewed/ CT scan consistent with COVID. Poss D/C am On o2/ Abnormal LFT. Poss DC am CW pred 20 BID for 1 wk then 10 BID
--- NOTE | 2021-03-01 22:19 | P.PN ---
Subjective Date of Service: 03/01/21 (TV) Primary Care Provider: Dr. Castellanos Chief Complaint: Resp failure Subjective: Improving (Doing better no distress. Still has desat on mild exertion) Physical Examination - Vital Signs Temperature: 98.4 F Blood Pressure: 112/67 Pulse: 73 Respirations: 23 Pulse Ox (%): 90 - Studies Medications List Reviewed: Yes Assessment & Plan - Problems (Diagnosis) (1) COVID Current Visit: Yes Status: Acute Plan: Improving. plan to DC home Add Ivermectin/ DC Am on pred 20 BID for 1 wk then 10 BID/ F?U with me in 2wks/ CW ivermectin second dose
[2021-03-02] MEDS: METHYLPREDNISOLONE 125 MG INJ IV SCH ×3 (02:00→17:00)
[2021-03-02] MEDS ORDERED: METHYLPREDNISOLONE 40 MG INJ ONE (02:42)
[2021-03-02 05:14] LABS: Basophils % 0.1 % (0-1.3); Lymphocytes % 6.4 % (15.3-44.8); MPV 7.6 fL (7.6-11.3); RBC Red Blood Cell Count 4.38 M/uL (3.86-4.86)
[2021-03-02 05:30] LABS: C-Reactive Protein 34.4 mg/L (<3.00); Potassium 3.1 mmol/L (3.5-5.1)
--- NOTE | 2021-03-02 07:14 | RAD REPORT ---
EXAM DESCRIPTION: RAD - Chest Single View - 03/02/2021 5:53 am CLINICAL HISTORY: pneumonia COMPARISON: Chest Single View dated 02/27/2021 FINDINGS: Were seen widespread bilateral airspace disease. Cardiomegaly.No acute osseous abnormality . IMPRESSION: Worsening bilateral airspace disease which may reflect either multifocal pneumonia and/o r edema.
[2021-03-02] MEDS: LEVOTHYROXINE SOD 0.075 MG TAB PO SCH (07:30)
[2021-03-02] MEDS: INSULIN -REGULAR HUMAN 50 UNIT/0.5 ML ML SQ SCH ×4 (07:30→21:00)
[2021-03-02] MEDS: METFORMIN HCL 500 MG TAB PO SCH (08:00)
[2021-03-02] MEDS ORDERED: METFORMIN HCL 500 MG TAB ONE (08:12)
[2021-03-02] MEDS ORDERED: ASPIRIN 81 MG CHEWABLE TABLET ONE (08:12)
[2021-03-02] MEDS ORDERED: METHYLPREDNISOLONE 125 MG INJ ONE ×2 (08:12→18:29)
[2021-03-02] MEDS ORDERED: ZINC SULFATE 220 MG CAP ONE (08:12)
[2021-03-02] MEDS ORDERED: VITAMIN D 1000 UNIT TAB ONE (08:13)
[2021-03-02] MEDS ORDERED: ASCORBIC ACID 500 MG TABLET ONE ×3 (08:13→21:56)
[2021-03-02] MEDS ORDERED: FAMOTIDINE 20 MG TAB ONE ×2 (08:13→21:56)
[2021-03-02] MEDS ORDERED: ENOXAPARIN 40 MG/0.4 ML SQ ONE (08:13)
[2021-03-02] MEDS: LACTOBACILLUS/ACIDOPHILUS TAB PO SCH ×2 (08:33→21:00)
[2021-03-02] MEDS: ASCORBIC ACID 500 MG TABLET PO SCH ×3 (08:33→21:00)
[2021-03-02] MEDS: ZINC SULFATE 220 MG CAP PO SCH (08:33)
[2021-03-02] MEDS: ASPIRIN EC 81 MG TAB PO SCH (08:33)
[2021-03-02] MEDS: ENOXAPARIN 40 MG/0.4 ML SQ SCH (08:33)
[2021-03-02] MEDS: FAMOTIDINE 20 MG TAB PO SCH ×2 (08:33→21:00)
[2021-03-02] MEDS: ESCITALOPRAM 20 MG TAB PO SCH (08:33)
[2021-03-02] MEDS: THIAMINE HCL 100 MG TABLET PO SCH ×2 (09:00→21:00)
[2021-03-02] MEDS ORDERED: BENZONATATE 100 MG CAP PO ONE (09:06)
[2021-03-02] MEDS ORDERED: ACETAMINOPHEN 500 MG TAB ONE (09:06)
[2021-03-02] MEDS ORDERED: THIAMINE HCL 100 MG TABLET ONE ×2 (16:03→21:55)
[2021-03-02] MEDS ORDERED: BARICITINIB 2 MG TABLET PO SCH (17:00)
[2021-03-02] MEDS: IVERMECTIN 3 MG TABLET PO SCH (18:00)
--- NOTE | 2021-03-02 20:32 | P.PN ---
Subjective Date of Service: 03/02/21 Primary Care Provider: Dr. Castellanos Chief Complaint: Resp failure NOt doign well/ requiring sig O2/ Still very SOB Review of Systems General: Weakness Respiratory: Shortness of Breath Physical Examination - Vital Signs Temperature: 98.5 F Blood Pressure: 113/67 Pulse: 75 Respirations: 22 Pulse Ox (%): 88 - Studies Medications List Reviewed: Yes Assessment & Plan - Problems (Diagnosis) (1) COVID Current Visit: Yes Status: Acute Plan: Resp failure not doign well. CXRY is worse/ LFT improving, Oxygenation worsened/ LAbs and CXRY rev/ PRone positioning/ Anticoagulate with Eliquis
[2021-03-02] MEDS: APIXABAN 2.5 MG TABLET PO SCH (21:00)
[2021-03-02] MEDS ORDERED: APIXABAN 5 MG TABLET ONE (21:53)
--- NOTE | 2021-03-03 00:20 | P.PN ---
Date of Service: 03/02/21 Subjective Patient is more tachypneic today and chest x-ray does look much worse. Spoke to patient's regarding her current clinical condition. Continues on steroids and ivermectin; inflammatory markers are improving. Review of Systems 10-point ROS is otherwise unremarkable Physical Examination - Vital Signs reviewed - Physical Exam General: Alert, In no apparent distress, Oriented x3; gets really tachypneic on getting out of bed; obesity Respiratory: Diminished Cardiovascular: Regular rate/rhythm, Normal S1 S2, No murmurs Gastrointestinal: Normal bowel sounds, Soft and benign, Non-distended, No tenderness Musculoskeletal: No clubbing, No swelling, No tenderness Neurological: Generalized weakness Assessment & Plan - Problems (Diagnosis) (1) Pneumonia due to COVID-19 virus Current Visit: Yes Status: Acute (2) Hypoxemia Current Visit: Yes Status: Acute (3) Morbid obesity Current Visit: Yes Status: Acute - Plan Continue with plan of care as mentioned below: 1. Continue with IV steroids 2. Monitor inflammatory markers; these look to be improving 3. Repeat chest x-ray was progressively worsening infiltrates bilaterally 4. O2 per protocol 5. Pulmonary consultation appreciated 6. Continue with albuterol inhaler therapy; also supportive care; added ivermectin; because of elevated LFTs holding Remdesivir. 7. Had to go up to high-flow oxygen today. 8. GI and DVT prophylaxis
[2021-03-03] MEDS: METHYLPREDNISOLONE 125 MG INJ IV SCH ×3 (01:00→17:00)
[2021-03-03] MEDS ORDERED: METHYLPREDNISOLONE 125 MG INJ ONE ×2 (01:21→07:52)
[2021-03-03 05:58] LABS: Absolute Lymphocytes (CBC) 1.1 K/uL (0.7-4.9); Basophils % 0.3 % (0-1.3); Hematocrit 37.6 % (36.0-45.0); Lymphocytes % 6.4 % (15.3-44.8); MPV 7.6 fL (7.6-11.3); RBC Red Blood Cell Count 4.48 M/uL (3.86-4.86)
--- NOTE | 2021-03-03 06:17 | P.PN ---
Subjective Date of Service: 03/03/21 Primary Care Provider: Dr. Castellanos Chief Complaint: Resp failure Subjective: No new changes Physical Examination - Vital Signs Temperature: 98.6 F Blood Pressure: 111/63 Pulse: 59 Respirations: 24 Pulse Ox (%): 91 - Studies Medications List Reviewed: Yes Assessment & Plan Discharge Plan: Home Plan to discharge in: Greater than 2 days Physician Review Additional Text: CT scan: COMPARISON: February 27, 2021 chest x-ray TECHNIQUE: Dynamically enhanced axial 3 mm thick images of the chest were obtained during administration of <100> mL Isovue 370 IV contrast. Coronal and oblique reconstruction images were generated and reviewed. Exam utilizes a protocol for optimal evaluation of pulmonary arterial tree. Maximum intensity projections 3D imaging was utilized All CT scans are performed using dose optimization technique as appropriate and may include automated exposure control or mA/KV adjustment according to patient size. FINDINGS: A pulmonary embolus is not seen. A thoracic aortic aneurysm is not noted. A pleural effusion is not seen. A pericardial effusion is not seen. Moderate patchy ground-glass opacities within the lungs IMPRESSION: Negative for a pulmonary embolism. Moderate patchy ground-glass opacities within the lungs can be seen with pneumonia can be seen with Covid pneumonia Follow-up chest x-ray 03/03/2021: FINDINGS: Similar widespread bilateral airspace disease with areas of more confluent disease in the left mid lung and right lung base. The heart size is within normal limits.No acute osseous abnormality. No significant pleural effusions or pneumothorax. IMPRESSION: Unchanged widespread bilateral airspace disease likely representing multifocal pneumonia with or without edema. Physical Exam: GENERAL: The patient is a well-developed, well-nourished, in no apparent distress. Alert and oriented x3. VITAL SIGNS: Reviewed HEENT: Head is normocephalic and atraumatic. Extraocular muscles are intact. Pupils are equal, round, and reactive to light and accommodation. Nares appeared normal. Mouth is well hydrated and without lesions. Mucous membranes are moist. NECK: Supple. No carotid bruits. No lymphadenopathy or thyromegaly. LUNGS: Patient stable. Currently on high flow. HEART: Regular rate and rhythm noted on monitor. ABDOMEN: Soft, nontender, and nondistended. Positive bowel sounds. No hepatosplenomegaly was noted. Patient morbidly obese. EXTREMITIES: Without any cyanosis, clubbing, rash, lesions or peripheral edema. NEUROLOGIC: The patient is oriented to person, place and time. Strength and sensation are grossly intact. Face is symmetric. SKIN: Normal color, turgor and temperature. No ulcerations or rashes noted. Impression: Dyspnea, fatigue, nausea, diarrhea secondary to bilateral Covid pneumonia with hypoxia, unvaccinated Prediabetes Elevated liver function suspect underlying fatty liver disease Hypothyroidism Depression Obesity Plan: Dyspnea, fatigue, nausea, diarrhea secondary to bilateral Covid pneumonia with hypoxia, unvaccinated: Patient remains on high flow. Continue IV steroids, supplementation. Will monitor and trend ferritin, CRP and lab. Patient not a candidate for remdesivir, acterma, or baricitinib due to her elevated liver function if needed. Suspect elevated liver function related to fatty liver disease. DVT prophylaxis in placeLovenox. Will also provide aspirin daily, cough medication as needed, and albuterol/Atrovent as needed. Patient with obesity. Encourage proning, incentive spirometer, and ambulation. Anticipate continued improvement. Discussed with pulmonology. Continue to wean off oxygen. Prediabetes: Will continue Metformin. Elevated liver function suspect underlying fatty liver disease: Suspect underlying fatty liver disease. Will monitor liver function test closely. Hypothyroidism: Continue medication Depression: Continue t home medicationLexapro Obesity: Will calculate BMI. Lifestyle modification education provided. Code Status: Full Code DVT prophylaxis: Lovenox Advanced Care Planning-30 minutes: Home at discharge with home oxygen. Time Spent Managing Pts Care (In Minutes): 55
[2021-03-03 06:31] LABS: Albumin 2.9 g/dL (3.4-5.0); Bilirubin Total 0.4 mg/dL (0.2-1.0); C-Reactive Protein 77.3 mg/L (<3.00); Ferritin 461.3 ng/mL (8-388); Magnesium 3.1 mg/dL (1.8-2.4); Potassium 3.1 mmol/L (3.5-5.1); Protein, Total 7.9 g/dL (6.4-8.2)
--- NOTE | 2021-03-03 07:08 | RAD REPORT ---
EXAM DESCRIPTION: RAD - Chest Single View - 03/03/2021 6:56 am CLINICAL HISTORY: follow up COVID COMPARISON: <Comparisons> FINDINGS: Similar widespread bilateral airspace disease with areas of more confluent disease in the left mid lung and right lung base. The heart size is within normal limits.No acute osseous abnormalit y. No significant pleural effusions or pneumothorax. IMPRESSION: Unchanged widespread bilateral airspace disease likely representing multifocal pneumonia with or without edema.
[2021-03-03] MEDS: INSULIN -REGULAR HUMAN 50 UNIT/0.5 ML ML SQ SCH ×4 (07:30→21:00)
[2021-03-03] MEDS ORDERED: ASPIRIN EC 81 MG TAB PO ONE (07:52)
[2021-03-03] MEDS ORDERED: METFORMIN HCL 500 MG TAB ONE (07:52)
[2021-03-03] MEDS ORDERED: THIAMINE HCL 100 MG TABLET ONE ×2 (07:52→21:13)
[2021-03-03] MEDS ORDERED: ZINC SULFATE 220 MG CAP ONE (07:52)
[2021-03-03] MEDS ORDERED: FAMOTIDINE 20 MG TAB ONE ×2 (07:53→21:53)
[2021-03-03] MEDS ORDERED: APIXABAN 5 MG TABLET ONE ×2 (07:53→21:13)
[2021-03-03] MEDS ORDERED: VITAMIN D 1000 UNIT TAB ONE (07:53)
[2021-03-03] MEDS ORDERED: ASCORBIC ACID 500 MG TABLET ONE ×3 (07:53→21:13)
[2021-03-03] MEDS: LEVOTHYROXINE SOD 0.075 MG TAB PO SCH (08:01)
[2021-03-03] MEDS: LACTOBACILLUS/ACIDOPHILUS TAB PO SCH ×2 (08:02→21:00)
[2021-03-03] MEDS: ESCITALOPRAM 20 MG TAB PO SCH (08:02)
[2021-03-03] MEDS: VITAMIN D 1000 UNIT TAB PO SCH (08:03)
[2021-03-03] MEDS: ASCORBIC ACID 500 MG TABLET PO SCH ×3 (08:03→21:00)
[2021-03-03] MEDS: ASPIRIN EC 81 MG TAB PO SCH (08:03)
[2021-03-03] MEDS: ZINC SULFATE 220 MG CAP PO SCH (08:03)
[2021-03-03] MEDS: THIAMINE HCL 100 MG TABLET PO SCH ×2 (08:03→21:00)
[2021-03-03] MEDS: FAMOTIDINE 20 MG TAB PO SCH ×2 (08:04→21:00)
[2021-03-03] MEDS: METFORMIN HCL 500 MG TAB PO SCH (08:04)
[2021-03-03] MEDS: APIXABAN 2.5 MG TABLET PO SCH ×2 (08:05→21:00)
[2021-03-03] MEDS ORDERED: METFORMIN HCL 500 MG TAB PO SCH (09:00)
[2021-03-03] MEDS ORDERED: ESCITALOPRAM 20 MG TAB PO SCH (09:00)
[2021-03-03] MEDS: TOPIRAMATE 25 MG TAB PO SCH (09:09)
[2021-03-03] MEDS ORDERED: METHYLPREDNISOLONE 40 MG INJ ONE (18:58)
--- NOTE | 2021-03-03 19:21 | P.PN ---
Subjective Date of Service: 03/03/21 (TV) Primary Care Provider: Dr. Castellanos Chief Complaint: Resp failure Nc still on 80% Fio2/ Depressed and weeping Physical Examination - Vital Signs Temperature: 98.6 F Blood Pressure: 111/63 Pulse: 59 Respirations: 24 Pulse Ox (%): 91 - Studies Medications List Reviewed: Yes Assessment & Plan - Problems (Diagnosis) (1) COVID Current Visit: Yes Status: Acute Plan: Resp failure PRone position/ titrate O2 down/Bilaterl ILD/ Barcitinib/ labs reviewed/ elevated CRP. hypokalemia
[2021-03-03] MEDS ORDERED: FAMOTIDINE 20 MG/2 ML VIAL IV ONE (21:13)
[2021-03-04] MEDS: METHYLPREDNISOLONE 125 MG INJ IV SCH ×3 (02:43→17:22)
[2021-03-04] MEDS ORDERED: METHYLPREDNISOLONE 125 MG INJ ONE ×2 (02:55→07:37)
--- NOTE | 2021-03-04 06:08 | P.PN ---
Subjective Date of Service: 03/04/21 Primary Care Provider: Dr. Castellanos Chief Complaint: Resp failure Subjective: No new changes (Patient appears comfortable on HF-80% this am. No significant cough or congestion) Physical Examination - Vital Signs Temperature: 98.6 F Blood Pressure: 127/73 Pulse: 63 Respirations: 16 Pulse Ox (%): 92 - Studies Medications List Reviewed: Yes Assessment & Plan Discharge Plan: Transfer Plan to discharge in: 24 Hours Physician Review Additional Text: CT scan: COMPARISON: February 27, 2021 chest x-ray TECHNIQUE: Dynamically enhanced axial 3 mm thick images of the chest were obtained during administration of <100> mL Isovue 370 IV contrast. Coronal and oblique reconstruction images were generated and reviewed. Exam utilizes a protocol for optimal evaluation of pulmonary arterial tree. Maximum intensity projections 3D imaging was utilized All CT scans are performed using dose optimization technique as appropriate and may include automated exposure control or mA/KV adjustment according to patient size. FINDINGS: A pulmonary embolus is not seen. A thoracic aortic aneurysm is not noted. A pleural effusion is not seen. A pericardial effusion is not seen. Moderate patchy ground-glass opacities within the lungs IMPRESSION: Negative for a pulmonary embolism. Moderate patchy ground-glass opacities within the lungs can be seen with pneumonia can be seen with Covid pneumonia Follow-up chest x-ray 03/03/2021: FINDINGS: Similar widespread bilateral airspace disease with areas of more confluent disease in the left mid lung and right lung base. The heart size is within normal limits.No acute osseous abnormality. No significant pleural effusions or pneumothorax. IMPRESSION: Unchanged widespread bilateral airspace disease likely representing multifocal pneumonia with or without edema. Physical Exam: GENERAL: The patient is a well-developed, well-nourished, in no apparent distress. Alert and oriented x3. VITAL SIGNS: Reviewed HEENT: Head is normocephalic and atraumatic. Extraocular muscles are intact. Pupils are equal, round, and reactive to light and accommodation. Nares appeared normal. Mouth is well hydrated and without lesions. Mucous membranes are moist. NECK: Supple. No carotid bruits. No lymphadenopathy or thyromegaly. LUNGS: Clear anteriorly. Currently on high flow-80%. HEART: Regular rate and rhythm noted on monitor. ABDOMEN: Soft, nontender, and nondistended. Positive bowel sounds. No hepatosplenomegaly was noted. Patient morbidly obese. EXTREMITIES: Without any cyanosis, clubbing, rash, lesions or peripheral edema. NEUROLOGIC: The patient is oriented to person, place and time. Strength and sensation are grossly intact. Face is symmetric. SKIN: Normal color, turgor and temperature. No ulcerations or rashes noted. Impression: Dyspnea, fatigue, nausea, diarrhea secondary to bilateral Covid pneumonia with hypoxia, unvaccinated Prediabetes Elevated liver function suspect underlying fatty liver disease Hypothyroidism Depression Obesity Plan: Dyspnea, fatigue, nausea, diarrhea secondary to bilateral Covid pneumonia with hypoxia, unvaccinated: Patient remains on high flow at 80%, slighlty higher than yesterday. Continue IV steroids, supplementation. Patient also receiving Ivermectin. Will monitor and trend ferritin, CRP and lab. Patient not a candidate for remdesivir, acterma, or baricitinib due to her elevated liver function if needed. Suspect elevated liver function related to fatty liver disease. DVT prophylaxis in placeEliquis as recommended by Pulmonary. Will also provide aspirin daily, cough medication as needed, and albuterol/Atrovent as needed. Patient with obesity. Encourage proning, incentive spirometer, and ambulation. Anticipate continued improvement. Discussed with patient about transfer to higher level of care in the event she would require further intervention and treatment. She is in agreement for transfer. Transfer process in place. Continue to wean off oxygen. SPoke to Pulmonary yesterday concerning possible transfer, Pulmonary is in agreement. Prediabetes: Will continue Metformin. Elevated liver function suspect underlying fatty liver disease: Suspect underlying fatty liver disease. Will monitor liver function test closely. Hypothyroidism: Continue medication-Synthroid 75 mcg daily. Depression: Continue to home medicationLexapro. Obesity: Will calculate BMI. Lifestyle modification education provided. Code Status: Full Code DVT prophylaxis: Eliquis Advanced Care Planning-30 minutes: Transfer to higher level of care. Time Spent Managing Pts Care (In Minutes): 55
[2021-03-04 06:22] LABS: Absolute Lymphocytes (CBC) 0.9 K/uL (0.7-4.9); Basophils % 0.3 % (0-1.3); Hematocrit 36.9 % (36.0-45.0); Lymphocytes % 9.4 % (15.3-44.8); MPV 7.8 fL (7.6-11.3); RBC Red Blood Cell Count 4.37 M/uL (3.86-4.86)
[2021-03-04 06:48] LABS: ALT/SGPT 60 U/L (12-78); AST/SGOT 39 U/L (15-37); Albumin 2.6 g/dL (3.4-5.0); Alkaline Phosphatase 101 U/L (45-117); BUN Blood Urea Nitrogen 13 mg/dL (7-18); Bicarbonate 28 mmol/L (21-32); Bilirubin Total 0.4 mg/dL (0.2-1.0); Ferritin 439.5 ng/mL (8-388); Glucose Level 110 mg/dL (74-106); Potassium 3.2 mmol/L (3.5-5.1); Protein, Total 7.3 g/dL (6.4-8.2); Sodium Level 141 mmol/L (136-145)
[2021-03-04] MEDS: INSULIN -REGULAR HUMAN 50 UNIT/0.5 ML ML SQ SCH ×4 (07:30→21:00)
[2021-03-04] MEDS ORDERED: ASPIRIN EC 81 MG TAB PO ONE (07:37)
[2021-03-04] MEDS ORDERED: METFORMIN HCL 500 MG TAB ONE (07:37)
[2021-03-04] MEDS ORDERED: ZINC SULFATE 220 MG CAP ONE (07:37)
[2021-03-04] MEDS ORDERED: THIAMINE HCL 100 MG TABLET ONE (07:37)
[2021-03-04] MEDS ORDERED: VITAMIN D 1000 UNIT TAB ONE (07:38)
[2021-03-04] MEDS ORDERED: FAMOTIDINE 20 MG TAB ONE (07:38)
[2021-03-04] MEDS ORDERED: ASCORBIC ACID 500 MG TABLET ONE ×2 (07:38→13:13)
[2021-03-04] MEDS: ASCORBIC ACID 500 MG TABLET PO SCH ×3 (07:53→21:03)
[2021-03-04] MEDS: VITAMIN D 1000 UNIT TAB PO SCH (07:54)
[2021-03-04] MEDS: METFORMIN HCL 500 MG TAB PO SCH (07:54)
[2021-03-04] MEDS: ESCITALOPRAM 20 MG TAB PO SCH (07:54)
[2021-03-04] MEDS: LEVOTHYROXINE SOD 0.075 MG TAB PO SCH (07:54)
[2021-03-04] MEDS: APIXABAN 2.5 MG TABLET PO SCH (07:55)
[2021-03-04] MEDS: ZINC SULFATE 220 MG CAP PO SCH (07:55)
[2021-03-04] MEDS: LACTOBACILLUS/ACIDOPHILUS TAB PO SCH ×2 (07:55→21:03)
[2021-03-04] MEDS: ASPIRIN EC 81 MG TAB PO SCH (07:56)
[2021-03-04] MEDS: TOPIRAMATE 25 MG TAB PO SCH (07:56)
[2021-03-04] MEDS: THIAMINE HCL 100 MG TABLET PO SCH ×2 (07:56→21:03)
[2021-03-04] MEDS: FAMOTIDINE 20 MG TAB PO SCH ×2 (07:56→21:03)
[2021-03-04 08:20] LABS: Blood Morphology Comment NOT SEEN (NOT SEEN); Platelet Estimate ADEQ
[2021-03-04] MEDS: BARICITINIB 2 MG TABLET PO SCH (10:45)
[2021-03-04] MEDS ORDERED: POTASSIUM CL SA 10 MEQ TAB PO ONE ×3 (11:50→22:00)
[2021-03-04] MEDS: IVERMECTIN 3 MG TABLET PO SCH (17:22)
--- NOTE | 2021-03-04 19:09 | P.PN ---
Subjective Date of Service: 03/04/21 (TV) Primary Care Provider: Dr. Castellanos Chief Complaint: Resp failure NC Stable Review of Systems Respiratory: Shortness of Breath Physical Examination - Vital Signs Temperature: 97.2 F Blood Pressure: 110/61 Pulse: 60 Respirations: 25 Pulse Ox (%): 94 - Studies Medications List Reviewed: Yes Assessment & Plan - Problems (Diagnosis) (1) COVID Current Visit: Yes Status: Acute Plan: Resp failure/ Add Barcitinib/ Ferritin lower
[2021-03-04] MEDS: APIXABAN 5 MG TABLET PO SCH (21:03)
[2021-03-05] MEDS: METHYLPREDNISOLONE 125 MG INJ IV SCH ×3 (00:33→16:09)
[2021-03-05 05:29] LABS: Absolute Lymphocytes (CBC) 1.1 K/uL (0.7-4.9); Basophils % 0.7 % (0-1.3); Lymphocytes % 11.5 % (15.3-44.8); MPV 7.6 fL (7.6-11.3); RBC Red Blood Cell Count 4.58 M/uL (3.86-4.86)
[2021-03-05 05:50] LABS: ALT/SGPT 60 U/L (12-78); AST/SGOT 39 U/L (15-37); Albumin 2.7 g/dL (3.4-5.0); Alkaline Phosphatase 96 U/L (45-117); BUN Blood Urea Nitrogen 15 mg/dL (7-18); Bicarbonate 26 mmol/L (21-32); Bilirubin Total 0.4 mg/dL (0.2-1.0); Ferritin 431.2 ng/mL (8-388); Glucose Level 110 mg/dL (74-106); Potassium 3.6 mmol/L (3.5-5.1); Protein, Total 7.3 g/dL (6.4-8.2); Sodium Level 141 mmol/L (136-145)
--- NOTE | 2021-03-05 06:00 | P.PN ---
Subjective Date of Service: 03/05/21 Primary Care Provider: Dr. Castellanos Chief Complaint: Resp failure Subjective: Other (Patient reports improvement. Currently on high flow at 100%) Physical Examination - Vital Signs Temperature: 98.4 F Blood Pressure: 126/78 Pulse: 65 Respirations: 26 Pulse Ox (%): 90 - Studies Medications List Reviewed: Yes Assessment & Plan Discharge Plan: LTAC Plan to discharge in: 48 Hours Physician Review Additional Text: CT scan: COMPARISON: February 27, 2021 chest x-ray TECHNIQUE: Dynamically enhanced axial 3 mm thick images of the chest were obtained during administration of <100> mL Isovue 370 IV contrast. Coronal and oblique reconstruction images were generated and reviewed. Exam utilizes a protocol for optimal evaluation of pulmonary arterial tree. Maximum intensity projections 3D imaging was utilized All CT scans are performed using dose optimization technique as appropriate and may include automated exposure control or mA/KV adjustment according to patient size. FINDINGS: A pulmonary embolus is not seen. A thoracic aortic aneurysm is not noted. A pleural effusion is not seen. A pericardial effusion is not seen. Moderate patchy ground-glass opacities within the lungs IMPRESSION: Negative for a pulmonary embolism. Moderate patchy ground-glass opacities within the lungs can be seen with pneum onia can be seen with Covid pneumonia Follow-up chest x-ray 03/03/2021: FINDINGS: Similar widespread bilateral airspace disease with areas of more confluent disease in the left mid lung and right lung base. The heart size is within normal limits.No acute osseous abnormality. No significant pleural effusions or pneumothorax. IMPRESSION: Unchanged widespread bilateral airspace disease likely representing multifocal pneumonia with or without edema. Physical Exam: GENERAL: The patient is a well-developed, well-nourished, in no apparent distress. Alert and oriented x3. VITAL SIGNS: Reviewed HEENT: Neck supple NECK: Supple. No carotid bruits. No lymphadenopathy or thyromegaly. LUNGS: Clear anteriorly. Currently on high flow-80%. HEART: Regular rate and rhythm noted on monitor. ABDOMEN: Soft, nontender, and nondistended. Positive bowel sounds. No hepatosplenomegaly was noted. Patient morbidly obese. EXTREMITIES: Without any cyanosis, clubbing, rash, lesions or peripheral edema. NEUROLOGIC: The patient is oriented to person, place and time. Strength and sensation are grossly intact. Face is symmetric. SKIN: Normal color, turgor and temperature. No ulcerations or rashes noted. Impression: Dyspnea, fatigue, nausea, diarrhea secondary to bilateral Covid pneumonia with hypoxia, unvaccinated Prediabetes Elevated liver function suspect underlying fatty liver disease Hypothyroidism Depression Obesity Plan: Dyspnea, fatigue, nausea, diarrhea secondary to bilateral Covid pneumonia with hypoxia, unvaccinated: Patient remained stable on high flow at 100%. Continue IV steroids, supplementation. Patient also on baricitinib. Will monitor and trend ferritin, CRP and lab. Case discussed with pulmonology. If her condition continues to slow the improve we will consider long-term acute care facility placement. Family had wanted patient to be transferred to [facility]-level [place]. With her current oxygen requirement this may not be feasible. Will check ABG to assess her oxygenation as recommended by pulmonology. Encourage ambulation, incentive spirometer, proning. We will continue to monitor closely. Continue to wean off current oxygen requirement. Prediabetes: Will continue Metformin. Elevated liver function suspect underlying fatty liver disease: Suspect underlying fatty liver disease. Will monitor liver function test closely. Hypothyroidism: Continue medication-Synthroid 75 mcg daily. Depression: Continue to home medicationLexapro. Obesity BMI 57: Continue lifestyle modification education. Code Status: Full Code DVT prophylaxis: Connie Advanced Care Planning-30 minutes: Long-term acute care facility placement if improved versus transfer to high- level care. Time Spent Managing Pts Care (In Minutes): 55
[2021-03-05] MEDS ORDERED: POTASSIUM CL SA 10 MEQ TAB PO ONE (07:17)
[2021-03-05] MEDS: INSULIN -REGULAR HUMAN 50 UNIT/0.5 ML ML SQ SCH ×4 (07:30→20:05)
--- NOTE | 2021-03-05 07:32 | RAD REPORT ---
EXAM DESCRIPTION: RAD - Chest Single View - 03/05/2021 6:05 am CLINICAL HISTORY: resp failure COMPARISON: Chest Single View dated 03/03/2021; Chest Single View dated 03/02/2021; Chest Single View dated 02/27/2021; Chest For Pe Angio dated 02/27/2021 FINDINGS: Widespread bilateral airspace disease with similar areas of consolidation is unchanged. Ca rdiomegaly.No acute osseous abnormality. No significant pleural effusions or pneumothorax. IMPRESSION: No significant change from prior with similar findings of multifocal pneumonia with or w ithout edema.
[2021-03-05] MEDS: LACTOBACILLUS/ACIDOPHILUS TAB PO SCH ×2 (08:21→21:14)
[2021-03-05] MEDS: FAMOTIDINE 20 MG TAB PO SCH ×2 (08:21→21:14)
[2021-03-05] MEDS: VITAMIN D 1000 UNIT TAB PO SCH (08:21)
[2021-03-05] MEDS: ASPIRIN EC 81 MG TAB PO SCH (08:22)
[2021-03-05] MEDS: APIXABAN 5 MG TABLET PO SCH ×2 (08:22→21:13)
[2021-03-05] MEDS: THIAMINE HCL 100 MG TABLET PO SCH ×2 (08:22→21:14)
[2021-03-05] MEDS: LEVOTHYROXINE SOD 0.075 MG TAB PO SCH (08:22)
[2021-03-05] MEDS: ASCORBIC ACID 500 MG TABLET PO SCH ×3 (08:22→21:14)
[2021-03-05] MEDS: METFORMIN HCL 500 MG TAB PO SCH (08:22)
[2021-03-05] MEDS: ESCITALOPRAM 20 MG TAB PO SCH (08:23)
[2021-03-05] MEDS: BARICITINIB 2 MG TABLET PO SCH (08:23)
[2021-03-05] MEDS: ZINC SULFATE 220 MG CAP PO SCH (08:23)
[2021-03-05] MEDS: TOPIRAMATE 25 MG TAB PO SCH (08:24)
[2021-03-05 14:23] LABS: Arterial Blood Carboxyhemoglob 0.8 % (0-1.5); Blood O2 Saturation 96.4 % (92-98.5)
--- NOTE | 2021-03-05 16:49 | P.PN ---
Subjective Date of Service: 03/05/21 (TV) Primary Care Provider: Dr. Castellanos Chief Complaint: Resp failure Improving/ eating and drinking Review of Systems General: Weakness Respiratory: Shortness of Breath Physical Examination - Vital Signs Temperature: 97.8 F Blood Pressure: 117/88 Pulse: 89 Respirations: 21 Pulse Ox (%): 93 - Studies Medications List Reviewed: Yes Assessment & Plan - Problems (Diagnosis) (1) COVID Current Visit: Yes Status: Acute Plan: Resp failure improving/ CW present TX/ labs reviewed/ titrate O2 down ABG rev/
[2021-03-06] MEDS: METHYLPREDNISOLONE 125 MG INJ IV SCH ×4 (00:20→23:50)
[2021-03-06 05:11] LABS: Absolute Lymphocytes (CBC) 0.9 K/uL (0.7-4.9); Basophils % 0.2 % (0-1.3); Hematocrit 37.7 % (36.0-45.0); Lymphocytes % 6.5 % (15.3-44.8); MPV 7.9 fL (7.6-11.3)
[2021-03-06 05:46] LABS: ALT/SGPT 65 U/L (12-78); AST/SGOT 37 U/L (15-37); Albumin 2.8 g/dL (3.4-5.0); Alkaline Phosphatase 90 U/L (45-117); BUN Blood Urea Nitrogen 16 mg/dL (7-18); Bicarbonate 27 mmol/L (21-32); Bilirubin Total 0.4 mg/dL (0.2-1.0); C-Reactive Protein 6.73 mg/L (<3.00); Ferritin 314.9 ng/mL (8-388); Glucose Level 97 mg/dL (74-106); Potassium 3.8 mmol/L (3.5-5.1); Protein, Total 7.4 g/dL (6.4-8.2); Sodium Level 139 mmol/L (136-145)
[2021-03-06] MEDS: INSULIN -REGULAR HUMAN 50 UNIT/0.5 ML ML SQ SCH ×4 (07:30→20:57)
[2021-03-06] MEDS: LACTOBACILLUS/ACIDOPHILUS TAB PO SCH ×2 (08:21→19:51)
[2021-03-06] MEDS: VITAMIN D 1000 UNIT TAB PO SCH (08:22)
[2021-03-06] MEDS: ZINC SULFATE 220 MG CAP PO SCH (08:22)
[2021-03-06] MEDS: ASPIRIN EC 81 MG TAB PO SCH (08:22)
[2021-03-06] MEDS: FAMOTIDINE 20 MG TAB PO SCH ×2 (08:22→19:51)
[2021-03-06] MEDS: ASCORBIC ACID 500 MG TABLET PO SCH ×3 (08:22→19:51)
[2021-03-06] MEDS: LEVOTHYROXINE SOD 0.075 MG TAB PO SCH (08:22)
[2021-03-06] MEDS: METFORMIN HCL 500 MG TAB PO SCH (08:22)
[2021-03-06] MEDS: APIXABAN 5 MG TABLET PO SCH ×2 (08:22→19:51)
[2021-03-06] MEDS: THIAMINE HCL 100 MG TABLET PO SCH ×2 (08:22→19:51)
[2021-03-06] MEDS: ESCITALOPRAM 20 MG TAB PO SCH (08:22)
[2021-03-06] MEDS: BARICITINIB 2 MG TABLET PO SCH (08:23)
[2021-03-06] MEDS: TOPIRAMATE 25 MG TAB PO SCH (08:23)
--- NOTE | 2021-03-06 08:29 | P.PN ---
Subjective Date of Service: 03/06/21 (TV) Primary Care Provider: Dr. Castellanos Chief Complaint: Resp failure Stable Still on high concentration of Fio2 Review of Systems General: Weakness Respiratory: Shortness of Breath Physical Examination - Vital Signs Temperature: 97.4 F Blood Pressure: 127/74 Pulse: 66 Respirations: 26 Pulse Ox (%): 92 - Physical Exam General: Alert - Studies Medications List Reviewed: Yes Assessment & Plan - Problems (Diagnosis) (1) COVID Current Visit: Yes Status: Acute Plan: Resp failure/condition stable CW wean/on max Tx
[2021-03-06] MEDS ORDERED: POTASSIUM CL SA 10 MEQ TAB PO ONE (09:00)
--- NOTE | 2021-03-06 09:20 | RAD REPORT ---
EXAM DESCRIPTION: RAD - Chest Single View - 03/06/2021 6:11 am CLINICAL HISTORY: resp failure Chest pain. COMPARISON: Chest Single View dated 03/05/2021; Chest Single View dated 03/03/2021; Chest Single View dated 03/02/2021; Chest Single View dated 02/27/2021 FINDINGS: Portable technique limits examination quality. Moderate to significant bilateral airspace opacities are present, unchanged since yesterday's study. The heart is upper limit normal in size. No displaced fractures. IMPRESSION: Stable chest since yesterday's examination.
--- NOTE | 2021-03-06 16:21 | P.PN ---
Subjective Date of Service: 03/06/21 Primary Care Provider: Dr. Castellanos Chief Complaint: Resp failure Subjective: Improving, Doing well Physical Examination - Vital Signs Temperature: 97.8 F Blood Pressure: 118/75 Pulse: 73 Respirations: 25 Pulse Ox (%): 87 - Studies Medications List Reviewed: Yes Assessment & Plan Discharge Plan: Home Plan to discharge in: Greater than 2 days Physician Review Additional Text: CT scan: COMPARISON: February 27, 2021 chest x-ray TECHNIQUE: Dynamically enhanced axial 3 mm thick images of the chest were obtained during administration of <100> mL Isovue 370 IV contrast. Coronal and oblique reconstruction images were generated and reviewed. Exam utilizes a protocol for optimal evaluation of pulmonary arterial tree. Maximum intensity projections 3D imaging was utilized All CT scans are performed using dose optimization technique as appropriate and may include automated exposure control or mA/KV adjustment according to patient size. FINDINGS: A pulmonary embolus is not seen. A thoracic aortic aneurysm is not noted. A pleural effusion is not seen. A pericardial effusion is not seen. Moderate patchy ground-glass opacities within the lungs IMPRESSION: Negative for a pulmonary embolism. Moderate patchy ground-glass opacities within the lungs can be seen with pneumonia can be seen with Covid pneumonia Follow-up chest x-ray 03/03/2021: FINDINGS: Similar widespread bilateral airspace disease with areas of more confluent disease in the left mid lung and right lung base. The heart size is within normal limits.No acute osseous abnormality. No significant pleural effusions or pneumothorax. IMPRESSION: Unchanged widespread bilateral airspace disease likely representing multifocal pneumonia with or without edema. Physical Exam: GENERAL: The patient is a well-developed, well-nourished, in no apparent distress. Alert and oriented x3. VITAL SIGNS: Reviewed HEENT: Neck supple NECK: Supple. No carotid bruits. No lymphadenopathy or thyromegaly. LUNGS: Clear anteriorly. Currently on high flow-80%. HEART: Regular rate and rhythm noted on monitor. ABDOMEN: Soft, nontender, and nondistended. Positive bowel sounds. No hepatosplenomegaly was noted. Patient morbidly obese. EXTREMITIES: Without any cyanosis, clubbing, rash, lesions or peripheral edema. NEUROLOGIC: The patient is oriented to person, place and time. Strength and sensation are grossly intact. Face is symmetric. SKIN: Normal color, turgor and temperature. No ulcerations or rashes noted. Impression: Dyspnea, fatigue, nausea, diarrhea secondary to bilateral Covid pneumonia with hypoxia, unvaccinated Prediabetes Elevated liver function suspect underlying fatty liver disease Hypothyroidism Depression Obesity Plan: Dyspnea, fatigue, nausea, diarrhea secondary to bilateral Covid pneumonia with hypoxia, unvaccinated: Patient remained stable on high flow at 100%. Continue IV steroids, supplementation. Patient also on baricitinib. Will monitor and trend ferritin, CRP and lab. Case discussed with pulmonology. Patient and family does not desire LTAC. Encourage ambulation, incentive spirometer, proning. We will continue to monitor closely. Continue to wean off current oxygen requirement. Prediabetes: Will continue Metformin. Elevated liver function suspect underlying fatty liver disease: Suspect underlying fatty liver disease. Will monitor liver function test closely. Hypothyroidism: Continue medication-Synthroid 75 mcg daily. Depression: Continue to home medicationLexapro. Obesity BMI 57: Continue lifestyle modification education. Code Status: Full Code DVT prophylaxis: Connie Advanced Care Planning-30 minutes: Patient does not desire LTAC. Time Spent Managing Pts Care (In Minutes): 55
[2021-03-06] MEDS: IVERMECTIN 3 MG TABLET PO SCH (17:00)
[2021-03-07 05:23] LABS: ALT/SGPT 70 U/L (12-78); AST/SGOT 41 U/L (15-37); Albumin 2.8 g/dL (3.4-5.0); Alkaline Phosphatase 88 U/L (45-117); BUN Blood Urea Nitrogen 15 mg/dL (7-18); Bicarbonate 28 mmol/L (21-32); Bilirubin Total 0.4 mg/dL (0.2-1.0); C-Reactive Protein 5.93 mg/L (<3.00); Ferritin 254.1 ng/mL (8-388); Glucose Level 98 mg/dL (74-106); Magnesium 2.7 mg/dL (1.8-2.4); Protein, Total 7.1 g/dL (6.4-8.2); Sodium Level 139 mmol/L (136-145)
--- NOTE | 2021-03-07 05:56 | P.PN ---
Subjective Date of Service: 03/07/21 Primary Care Provider: Dr. Castellanos Chief Complaint: Resp failure Subjective: Improving (Patient stable at this time.) Physical Examination - Vital Signs Temperature: 96.9 F Blood Pressure: 96/56 Pulse: 54 Respirations: 30 Pulse Ox (%): 87 - Studies Medications List Reviewed: Yes Assessment & Plan Discharge Plan: Home Plan to discharge in: Greater than 2 days Physician Review Additional Text: CT scan: COMPARISON: February 27, 2021 chest x-ray TECHNIQUE: Dynamically enhanced axial 3 mm thick images of the chest were obtained during administration of <100> mL Isovue 370 IV contrast. Coronal and oblique reconstruction images were generated and reviewed. Exam utilizes a protocol for optimal evaluation of pulmonary arterial tree. Maximum intensity projections 3D imaging was utilized All CT scans are performed using dose optimization technique as appropriate and may include automated exposure control or mA/KV adjustment according to patient size. FINDINGS: A pulmonary embolus is not seen. A thoracic aortic aneurysm is not noted. A pleural effusion is not seen. A pericardial effusion is not seen. Moderate patchy ground-glass opacities within the lungs IMPRESSION: Negative for a pulmonary embolism. Moderate patchy ground-glass opacities within the lungs can be seen with pneumonia can be seen with Covid pneumonia Follow-up chest x-ray 03/03/2021: FINDINGS: Similar widespread bilateral airspace disease with areas of more confluent disease in the left mid lung and right lung base. The heart size is within normal limits.No acute osseous abnormality. No significant pleural effusions or pneumothorax. IMPRESSION: Unchanged widespread bilateral airspace disease likely representing multifocal pneumonia with or without edema. Physical Exam: GENERAL: The patient is a well-developed, well-nourished, in no apparent distress. Alert and oriented x3. VITAL SIGNS: Reviewed HEENT: Neck supple NECK: Supple. No carotid bruits. No lymphadenopathy or thyromegaly. LUNGS: Clear anteriorly. Patient was on high flow at 85% this morning. Patient appears comfortable.. HEART: Regular rate and rhythm noted on monitor. ABDOMEN: Soft, nontender, and nondistended. Positive bowel sounds. No hepatosplenomegaly was noted. Patient morbidly obese. EXTREMITIES: Without any cyanosis, clubbing, rash, lesions or peripheral edema. NEUROLOGIC: The patient is oriented to person, place and time. Strength and sensation are grossly intact. Face is symmetric. SKIN: Normal color, turgor and temperature. No ulcerations or rashes noted. Impression: Dyspnea, fatigue, nausea, diarrhea secondary to bilateral Covid pneumonia with hypoxia, unvaccinated Prediabetes Elevated liver function suspect underlying fatty liver disease Hypothyroidism Depression Obesity Plan: Dyspnea, fatigue, nausea, diarrhea secondary to bilateral Covid pneumonia with hypoxia, unvaccinated: Patient overall stable. Decrease oxygen maintenance noted. Currently on high flow at 85%. CRP and ferritin improved. Continue IV steroids and supplementation. Continue baricitinib. Continue to monitor labferritin, CRP closely. Case discussed with pulmonology. Case discussed at length with patient and family yesterday. Patient does not want to go to a long-term acute care facility. We will continue with current management. Encourage ambulation, incentive spirometer and proning. Patient understands th is. Anticipate continued improvement. Prediabetes: Blood sugar stable. Continue Metformin. Elevated liver function suspect underlying fatty liver disease: Suspect underlying fatty liver disease. Will monitor liver function test closely. Hypothyroidism: Continue medication-Synthroid 75 mcg daily. Depression: Continue to home medicationLexapro. Obesity BMI 57: Continue lifestyle modification education. Code Status: Full Code DVT prophylaxis: Connie Advanced Care Planning-30 minutes: Patient does not desire LTAC. Continue with plan of care. Home at discharge. Time Spent Managing Pts Care (In Minutes): 55
[2021-03-07 06:22] LABS: Absolute Lymphocytes (CBC) 0.9 K/uL (0.7-4.9); Basophils % 0.2 % (0-1.3); Hematocrit 39.1 % (36.0-45.0); MPV 7.4 fL (7.6-11.3); RBC Red Blood Cell Count 4.65 M/uL (3.86-4.86)
[2021-03-07] MEDS: INSULIN -REGULAR HUMAN 50 UNIT/0.5 ML ML SQ SCH (07:30)
[2021-03-07] MEDS: ZINC SULFATE 220 MG CAP PO SCH (07:44)
[2021-03-07] MEDS: VITAMIN D 1000 UNIT TAB PO SCH (07:44)
[2021-03-07] MEDS: ESCITALOPRAM 20 MG TAB PO SCH (07:45)
[2021-03-07] MEDS: THIAMINE HCL 100 MG TABLET PO SCH ×2 (07:45→20:32)
[2021-03-07] MEDS: ASPIRIN EC 81 MG TAB PO SCH (07:45)
[2021-03-07] MEDS: FAMOTIDINE 20 MG TAB PO SCH ×2 (07:45→20:32)
[2021-03-07] MEDS: METFORMIN HCL 500 MG TAB PO SCH (07:45)
[2021-03-07] MEDS: APIXABAN 5 MG TABLET PO SCH ×2 (07:46→20:32)
[2021-03-07] MEDS: LEVOTHYROXINE SOD 0.075 MG TAB PO SCH (07:46)
[2021-03-07] MEDS: ASCORBIC ACID 500 MG TABLET PO SCH ×3 (07:46→20:32)
[2021-03-07] MEDS: LACTOBACILLUS/ACIDOPHILUS TAB PO SCH ×2 (07:46→20:32)
[2021-03-07] MEDS: METHYLPREDNISOLONE 125 MG INJ IV SCH (07:47)
[2021-03-07] MEDS: BARICITINIB 2 MG TABLET PO SCH (07:48)
[2021-03-07] MEDS: TOPIRAMATE 25 MG TAB PO SCH (07:48)
--- NOTE | 2021-03-07 08:00 | RAD REPORT ---
EXAM DESCRIPTION: [place] Single View03/07/2021 7:19 am CLINICAL HISTORY: Chest pain COMPARISON: March 06, 2021 FINDINGS: Overall no significant change in extensive bilateral pulmonary opacities. Heart is mildly enlarged IMPRESSION: No significant change extensive bilateral pulmonary opacities which may represent pneumo angel or pulmonary edema
--- NOTE | 2021-03-07 11:45 | P.PN ---
Subjective Date of Service: 03/07/21 Primary Care Provider: Dr. Castellanos Chief Complaint: Resp failure NC on high concentration of Fio2 Review of Systems General: Weakness Respiratory: Shortness of Breath Physical Examination - Vital Signs Temperature: 96.9 F Blood Pressure: 96/56 Pulse: 54 Respirations: 30 Pulse Ox (%): 87 - Studies Medications List Reviewed: Yes Assessment & Plan - Problems (Diagnosis) (1) COVID Current Visit: Yes Status: Acute Plan: Resp failure [place] high conc of Fio2,CXRY Diffuse bialteral cahnges. REduce solumederol to 40 mg Q8/ labs cxry reviewed
[2021-03-07] MEDS: METHYLPREDNISOLONE 40 MG INJ IV SCH (15:56)
[2021-03-08] MEDS: METHYLPREDNISOLONE 40 MG INJ IV SCH ×3 (00:46→17:01)
[2021-03-08 04:10] LABS: ALT/SGPT 77 U/L (12-78); AST/SGOT 41 U/L (15-37); Albumin 2.9 g/dL (3.4-5.0); Alkaline Phosphatase 87 U/L (45-117); BUN Blood Urea Nitrogen 15 mg/dL (7-18); Bicarbonate 28 mmol/L (21-32); Bilirubin Total 0.4 mg/dL (0.2-1.0); C-Reactive Protein 7.61 mg/L (<3.00); Ferritin 221.1 ng/mL (8-388); Glucose Level 88 mg/dL (74-106); Magnesium 2.7 mg/dL (1.8-2.4); Potassium 3.6 mmol/L (3.5-5.1); Sodium Level 139 mmol/L (136-145)
[2021-03-08 04:11] LABS: Absolute Lymphocytes (CBC) 0.9 K/uL (0.7-4.9); Hematocrit 39.6 % (36.0-45.0); Lymphocytes % 7.4 % (15.3-44.8); MPV 7.7 fL (7.6-11.3); RBC Red Blood Cell Count 4.64 M/uL (3.86-4.86)
[2021-03-08 05:00] LABS: Blood Morphology Comment NOT SEEN (NOT SEEN); Platelet Estimate ADEQ
--- NOTE | 2021-03-08 05:52 | P.PN ---
Subjective Date of Service: 03/08/21 Primary Care Provider: Dr. Castellanos Chief Complaint: Resp failure Subjective: Doing well Physical Examination - Vital Signs Temperature: 97.6 F Blood Pressure: 106/68 Pulse: 569 Respirations: 27 Pulse Ox (%): 87 - Studies Medications List Reviewed: Yes Assessment & Plan Discharge Plan: Home Plan to discharge in: Greater than 2 days Physician Review Additional Text: CT scan: COMPARISON: February 27, 2021 chest x-ray TECHNIQUE: Dynamically enhanced axial 3 mm thick images of the chest were obtained during administration of <100> mL Isovue 370 IV contrast. Coronal and oblique reconstruction images were generated and reviewed. Exam utilizes a protocol for optimal evaluation of pulmonary arterial tree. Maximum intensity projections 3D imaging was utilized All CT scans are performed using dose optimization technique as appropriate and may include automated exposure control or mA/KV adjustment according to patient size. FINDINGS: A pulmonary embolus is not seen. A thoracic aortic aneurysm is not noted. A pleural effusion is not seen. A pericardial effusion is not seen. Moderate patchy ground-glass opacities within the lungs IMPRESSION: Negative for a pulmonary embolism. Moderate patchy ground-glass opacities within the lungs can be seen with pneumonia can be seen with Covid pneumonia Follow-up chest x-ray 03/03/2021: FINDINGS: Similar widespread bilateral airspace disease with areas of more confluent disease in the left mid lung and right lung base. The heart size is within normal limits.No acute osseous abnormality. No significant pleural effusions or pneumothorax. IMPRESSION: Unchanged widespread bilateral airspace disease likely representing multifocal pneumonia with or without edema. Physical Exam: GENERAL: The patient is a well-developed, well-nourished, in no apparent distress. Alert and oriented x3. VITAL SIGNS: Reviewed HEENT: Neck supple NECK: Supple. No carotid bruits. No lymphadenopathy or thyromegaly. LUNGS: Clear anteriorly. Patient was on high flow at 85% this morning. Patient appears comfortable.. HEART: Regular rate and rhythm noted on monitor. ABDOMEN: Soft, nontender, and nondistended. Positive bowel sounds. No hepatosplenomegaly was noted. Patient morbidly obese. EXTREMITIES: Without any cyanosis, clubbing, rash, lesions or peripheral edema. NEUROLOGIC: The patient is oriented to person, place and time. Strength and sensation are grossly intact. Face is symmetric. SKIN: Normal color, turgor and temperature. No ulcerations or rashes noted. Impression: Dyspnea, fatigue, nausea, diarrhea secondary to bilateral Covid pneumonia with hypoxia, unvaccinated Prediabetes Elevated liver function suspect underlying fatty liver disease Hypothyroidism Depression Obesity Plan: Dyspnea, fatigue, nausea, diarrhea secondary to bilateral Covid pneumonia with hypoxia, unvaccinated: Patient overall stable. No new changes. She reports she is slowly improving. Currently on high flow at 85%. CRP and ferritin improved. Continue IV steroids and supplementation. Continue baricitinib. Continue to monitor labferritin, CRP closely. Case discussed with pulmonology. Patient does not want to go to a long-term acute care facility. We will continue with current management. Encourage ambulation, incentive spirometer and proning. Patient understands this. Anticipate continued improvement. Prediabetes: Blood sugar stable. No need to monitor accucheck. Continue Metformin. Elevated liver function suspect underlying fatty liver disease: Suspect underlying fatty liver disease. Will monitor liver function test closely. Hypothyroidism: Continue medication-Synthroid 75 mcg daily. Depression: Continue to home medicationLexapro. Obesity BMI 57: Continue lifestyle modification education. Code Status: Full Code DVT prophylaxis: Connie Advanced Care Planning-30 minutes: Patient does not desire LTAC. Continue with plan of care. Home at discharge. Time Spent Managing Pts Care (In Minutes): 55
--- NOTE | 2021-03-08 07:13 | RAD REPORT ---
EXAM DESCRIPTION: RAD - Chest Single View - 03/08/2021 6:50 am CLINICAL HISTORY: resp failure COMPARISON: Chest Single View dated 03/07/2021; Chest Single View dated 03/06/2021; Chest Single View dated 03/05/2021; Chest Single View dated 03/03/2021; Chest For Pe Angio dated 02/27/2021 FINDINGS: Grossly similar appearance of bilateral widespread interstitial and airspace disease. Stab le size of the cardiac silhouette.No acute osseous abnormality. No significant pleural effusions or p neumothorax. IMPRESSION: Unchanged widespread bilateral airspace disease which likely reflects multifocal pneumon ia.
[2021-03-08] MEDS: FAMOTIDINE 20 MG TAB PO SCH ×2 (08:28→20:24)
[2021-03-08] MEDS: VITAMIN D 1000 UNIT TAB PO SCH (08:28)
[2021-03-08] MEDS: ESCITALOPRAM 20 MG TAB PO SCH (08:28)
[2021-03-08] MEDS: ASCORBIC ACID 500 MG TABLET PO SCH ×3 (08:28→20:24)
[2021-03-08] MEDS: LEVOTHYROXINE SOD 0.075 MG TAB PO SCH (08:28)
[2021-03-08] MEDS: APIXABAN 5 MG TABLET PO SCH ×2 (08:28→20:24)
[2021-03-08] MEDS: METFORMIN HCL 500 MG TAB PO SCH (08:28)
[2021-03-08] MEDS: THIAMINE HCL 100 MG TABLET PO SCH ×2 (08:28→20:24)
[2021-03-08] MEDS: ASPIRIN EC 81 MG TAB PO SCH (08:28)
[2021-03-08] MEDS: LACTOBACILLUS/ACIDOPHILUS TAB PO SCH ×2 (08:29→20:24)
[2021-03-08] MEDS: ZINC SULFATE 220 MG CAP PO SCH (08:29)
[2021-03-08] MEDS: TOPIRAMATE 25 MG TAB PO SCH (08:30)
[2021-03-08] MEDS: BARICITINIB 2 MG TABLET PO SCH (08:30)
[2021-03-08] MEDS ORDERED: POTASSIUM CL SA 10 MEQ TAB PO ONE (09:00)
[2021-03-08 15:05] VITALS: BMI 56.7
[2021-03-09] MEDS: METHYLPREDNISOLONE 40 MG INJ IV SCH ×3 (00:32→16:53)
[2021-03-09 05:29] LABS: Absolute Lymphocytes (CBC) 1.2 K/uL (0.7-4.9); Basophils % 0.2 % (0-1.3); Hematocrit 38.2 % (36.0-45.0); MPV 7.7 fL (7.6-11.3); RBC Red Blood Cell Count 4.52 M/uL (3.86-4.86)
--- NOTE | 2021-03-09 05:52 | P.PN ---
Subjective Date of Service: 03/09/21 Primary Care Provider: Dr. Castellanos Chief Complaint: Resp failure Subjective: Improving, Doing well (On HF at 75% with FR 15) Physical Examination - Vital Signs Temperature: 98.3 F Blood Pressure: 115/76 Pulse: 50 Respirations: 21 Pulse Ox (%): 88 - Studies Medications List Reviewed: Yes Assessment & Plan Discharge Plan: Home Plan to discharge in: Greater than 2 days Physician Review Additional Text: CT scan: COMPARISON: February 27, 2021 chest x-ray TECHNIQUE: Dynamically enhanced axial 3 mm thick images of the chest were obtained during administration of <100> mL Isovue 370 IV contrast. Coronal and oblique reconstruction images were generated and reviewed. Exam utilizes a protocol for optimal evaluation of pulmonary arterial tree. Maximum intensity projections 3D imaging was utilized All CT scans are performed using dose optimization technique as appropriate and may include automated exposure control or mA/KV adjustment according to patient size. FINDINGS: A pulmonary embolus is not seen. A thoracic aortic aneurysm is not noted. A pleural effusion is not seen. A pericardial effusion is not seen. Moderate patchy ground-glass opacities within the lungs IMPRESSION: Negative for a pulmonary embolism. Moderate patchy ground-glass opacities within the lungs can be seen with pneumonia can be seen with Covid pneumonia Follow-up chest x-ray 03/03/2021: FINDINGS: Similar widespread bilateral airspace disease with areas of more confluent disease in the left mid lung and right lung base. The heart size is within normal limits.No acute osseous abnormality. No significant pleural effusions or pneumothorax. IMPRESSION: Unchanged widespread bilateral airspace disease likely representing multifocal pneumonia with or without edema. Physical Exam: GENERAL: The patient is a well-developed, well-nourished, in no apparent distress. Alert and oriented x3. VITAL SIGNS: Reviewed HEENT: Neck supple NECK: Supple. No carotid bruits. No lymphadenopathy or thyromegaly. LUNGS: Clear anteriorly. Patient was on high flow at 75% this morning. Patient appears comfortable.. HEART: Regular rate and rhythm noted on monitor. ABDOMEN: Soft, nontender, and nondistended. Positive bowel sounds. No hepatosplenomegaly was noted. Patient morbidly obese. EXTREMITIES: Without any cyanosis, clubbing, rash, lesions or peripheral edema. NEUROLOGIC: The patient is oriented to person, place and time. Strength and sensation are grossly intact. Face is symmetric. SKIN: Normal color, turgor and temperature. No ulcerations or rashes noted. Impression: Dyspnea, fatigue, nausea, diarrhea secondary to bilateral Covid pneumonia with hypoxia, unvaccinated Prediabetes Elevated liver function suspect underlying fatty liver disease Hypothyroidism Depression Obesity Plan: Dyspnea, fatigue, nausea, diarrhea secondary to bilateral Covid pneumonia with hypoxia, unvaccinated: Patient overall stable and continues to slowly improve. Currently on high flow at 75%. CRP and ferritin improved. Continue IV steroids and supplementation. Continue baricitinib. Continue to monitor labferritin, CRP closely. Case discussed with pulmonology. Patient does not want to go to a long-term acute care facility. We will continue with current management. Encourage ambulation, incentive spirometer and proning. Patient understands this. Anticipate continued improvement. Prediabetes: Blood sugar stable. No need to monitor accucheck. Continue Metformin. Elevated liver function suspect underlying fatty liver disease: Suspect underlying fatty liver disease. Will monitor liver function test closely. Hypothyroidism: Continue medication-Synthroid 75 mcg daily. Depression: Continue to home medicationLexapro. Obesity BMI 57: Continue lifestyle modification education. Code Status: Full Code DVT prophylaxis: Connie Advanced Care Planning-30 minutes: Patient does not desire LTAC. Continue with plan of care. Home at discharge. Time Spent Managing Pts Care (In Minutes): 55
[2021-03-09 05:54] LABS: ALT/SGPT 76 U/L (12-78); AST/SGOT 34 U/L (15-37); Albumin 2.9 g/dL (3.4-5.0); Alkaline Phosphatase 83 U/L (45-117); BUN Blood Urea Nitrogen 15 mg/dL (7-18); Bicarbonate 28 mmol/L (21-32); Bilirubin Total 0.4 mg/dL (0.2-1.0); Glucose Level 80 mg/dL (74-106); Potassium 3.5 mmol/L (3.5-5.1); Protein, Total 6.9 g/dL (6.4-8.2); Sodium Level 138 mmol/L (136-145)
[2021-03-09 05:55] LABS: C-Reactive Protein 4.78 mg/L (<3.00); Magnesium 2.7 mg/dL (1.8-2.4)
[2021-03-09] MEDS: BARICITINIB 2 MG TABLET PO SCH (08:11)
[2021-03-09] MEDS: VITAMIN D 1000 UNIT TAB PO SCH (08:11)
[2021-03-09] MEDS: TOPIRAMATE 25 MG TAB PO SCH (08:11)
[2021-03-09] MEDS: ASPIRIN EC 81 MG TAB PO SCH (08:11)
[2021-03-09] MEDS: THIAMINE HCL 100 MG TABLET PO SCH ×2 (08:11→20:18)
[2021-03-09] MEDS: LACTOBACILLUS/ACIDOPHILUS TAB PO SCH ×2 (08:12→20:17)
[2021-03-09] MEDS: APIXABAN 5 MG TABLET PO SCH ×2 (08:12→20:18)
[2021-03-09] MEDS: LEVOTHYROXINE SOD 0.075 MG TAB PO SCH (08:12)
[2021-03-09] MEDS: ZINC SULFATE 220 MG CAP PO SCH (08:12)
[2021-03-09] MEDS: ESCITALOPRAM 20 MG TAB PO SCH (08:12)
[2021-03-09] MEDS: METFORMIN HCL 500 MG TAB PO SCH (08:12)
[2021-03-09] MEDS: ASCORBIC ACID 500 MG TABLET PO SCH ×3 (08:12→20:18)
[2021-03-09] MEDS: FAMOTIDINE 20 MG TAB PO SCH ×2 (08:12→20:17)
[2021-03-09] MEDS ORDERED: POTASSIUM CL SA 10 MEQ TAB PO ONE (09:00)
--- NOTE | 2021-03-09 09:51 | P.PN ---
Subjective Date of Service: 03/09/21 Primary Care Provider: Dr. Castellanos Chief Complaint: Resp failure Subjective: Improving Feeling much better / eating and drinkin Review of Systems Respiratory: Shortness of Breath Physical Examination - Vital Signs Temperature: 98.3 F Blood Pressure: 115/76 Pulse: 50 Respirations: 21 Pulse Ox (%): 88 - Studies Medications List Reviewed: Yes Assessment & Plan - Problems (Diagnosis) (1) COVID Current Visit: Yes Status: Acute Plan: Improving, Eating and drinking, CXRY Diffuse ILD, Fio2 down to 75%, ABG/ LFT now normal/ on Barcitinib
[2021-03-09 10:23] LABS: Blood O2 Saturation 93.7 % (92-98.5)
[2021-03-10] MEDS: METHYLPREDNISOLONE 40 MG INJ IV SCH ×3 (00:14→16:53)
[2021-03-10 05:25] LABS: BUN Blood Urea Nitrogen 14 mg/dL (7-18); Bicarbonate 30 mmol/L (21-32); Glucose Level 103 mg/dL (74-106); Potassium 3.9 mmol/L (3.5-5.1); Sodium Level 139 mmol/L (136-145)
--- NOTE | 2021-03-10 05:51 | P.PN ---
Subjective Date of Service: 03/10/21 Primary Care Provider: Dr. Castellanos Chief Complaint: Resp failure Subjective: Improving (Currently on 6 L per nasal cannula) Physical Examination - Vital Signs Temperature: 97 F Blood Pressure: 111/68 Pulse: 61 Respirations: 20 Pulse Ox (%): 89 - Studies Medications List Reviewed: Yes Assessment & Plan Discharge Plan: Home Plan to discharge in: 48 Hours Physician Review Additional Text: CT scan: COMPARISON: February 27, 2021 chest x-ray TECHNIQUE: Dynamically enhanced axial 3 mm thick images of the chest were o btained during administration of <100> mL Isovue 370 IV contrast. Coronal and oblique reconstruction images were generated and reviewed. Exam utilizes a protocol for optimal evaluation of pulmonary arterial tree. Maximum intensity projections 3D imaging was utilized All CT scans are performed using dose optimization technique as appropriate and may include automated exposure control or mA/KV adjustment according to patient size. FINDINGS: A pulmonary embolus is not seen. A thoracic aortic aneurysm is not noted. A pleural effusion is not seen. A pericardial effusion is not seen. Moderate patchy ground-glass opacities within the lungs IMPRESSION: Negative for a pulmonary embolism. Moderate patchy ground-glass opacities within the lungs can be seen with pneumonia can be seen with Covid pneumonia Follow-up chest x-ray 03/03/2021: FINDINGS: Similar widespread bilateral airspace disease with areas of more confluent disease in the left mid lung and right lung base. The heart size is within normal limits.No acute osseous abnormality. No significant pleural effusions or pneumothorax. IMPRESSION: Unchanged widespread bilateral airspace disease likely representing multifocal pneumonia with or without edema. Physical Exam: GENERAL: The patient is a well-developed, well-nourished, in no apparent distress. Alert and oriented x3. VITAL SIGNS: Reviewed HEENT: Neck supple NECK: Supple. No carotid bruits. No lymphadenopathy or thyromegaly. LUNGS: Clear anteriorly. Patient appears comfortable. Currently on 6 L per nasal cannula. HEART: Regular rate and rhythm noted on monitor. ABDOMEN: Soft, nontender, and nondistended. Positive bowel sounds. No hepatosplenomegaly was noted. Patient morbidly obese. EXTREMITIES: Without any cyanosis, clubbing, rash, lesions or peripheral edema. NEUROLOGIC: The patient is oriented to person, place and time. Strength and sensation are grossly intact. Face is symmetric. SKIN: Normal color, turgor and temperature. No ulcerations or rashes noted. Impression: Dyspnea, fatigue, nausea, diarrhea secondary to bilateral Covid pneumonia with hypoxia, unvaccinated Prediabetes Elevated liver function suspect underlying fatty liver disease Hypothyroidism Depression Obesity Plan: Dyspnea, fatigue, nausea, diarrhea secondary to bilateral Covid pneumonia with hypoxia, unvaccinated: Patient overall stable and continues to slowly improve. Currently on 6 L. Continue to wean off. CRP and ferritin improved. Continue IV steroids and supplementation. Continue baricitinib. Continue to monitor labferritin, CRP closely. Case discussed with pulmonology. If able to decrease oxygen use less than 4 L will consider discharge in the next 48 hours. Prediabetes: Blood sugar stable. No need to monitor accucheck. Continue Metformin. Elevated liver function suspect underlying fatty liver disease: Suspect underlying fatty liver disease. Will monitor liver function test closely. Hypothyroidism: Continue medication-Synthroid 75 mcg daily. Depression: Continue to home medicationLexapro. Obesity BMI 57: Continue lifestyle modification education. Code Status: Full Code DVT prophylaxis: Connie Advanced Care Planning-30 minutes: Pursue home at discharge.
[2021-03-10] MEDS: VITAMIN D 1000 UNIT TAB PO SCH (08:22)
[2021-03-10] MEDS: TOPIRAMATE 25 MG TAB PO SCH (08:22)
[2021-03-10] MEDS: BARICITINIB 2 MG TABLET PO SCH (08:22)
[2021-03-10] MEDS: ASPIRIN EC 81 MG TAB PO SCH (08:23)
[2021-03-10] MEDS: FAMOTIDINE 20 MG TAB PO SCH ×2 (08:23→19:48)
[2021-03-10] MEDS: THIAMINE HCL 100 MG TABLET PO SCH ×2 (08:23→19:48)
[2021-03-10] MEDS: ZINC SULFATE 220 MG CAP PO SCH (08:23)
[2021-03-10] MEDS: METFORMIN HCL 500 MG TAB PO SCH (08:23)
[2021-03-10] MEDS: APIXABAN 5 MG TABLET PO SCH ×2 (08:23→19:48)
[2021-03-10] MEDS: ASCORBIC ACID 500 MG TABLET PO SCH ×3 (08:23→19:48)
[2021-03-10] MEDS: LEVOTHYROXINE SOD 0.075 MG TAB PO SCH (08:23)
[2021-03-10] MEDS: ESCITALOPRAM 20 MG TAB PO SCH (08:24)
[2021-03-10] MEDS ORDERED: POTASSIUM CL SA 10 MEQ TAB PO ONE (09:00)
[2021-03-10] MEDS: LACTOBACILLUS/ACIDOPHILUS TAB PO SCH ×2 (09:15→19:48)
--- NOTE | 2021-03-10 10:21 | P.PN ---
Subjective Date of Service: 03/10/21 (TV) Primary Care Provider: Dr. Castellanos Chief Complaint: Resp failure Doign much better Physical Examination - Vital Signs Temperature: 97 F Blood Pressure: 111/68 Pulse: 61 Respirations: 20 Pulse Ox (%): 89 - Studies Medications List Reviewed: Yes Assessment & Plan - Problems (Diagnosis) (1) COVID Current Visit: Yes Status: Acute Plan: Much better on NC O2/ poss DC hoem 1-2 days on pred anticoag and aspirin Physician Review Additional Text: CT scan: COMPARISON: February 27, 2021 chest x-ray TECHNIQUE: Dynamically enhanced axial 3 mm thick images of the chest were obtained during administration of <100> mL Isovue 370 IV contrast. Coronal and oblique reconstruction images were generated and reviewed. Exam utilizes a protocol for optimal evaluation of pulmonary arterial tree. Maximum intensity projections 3D imaging was utilized All CT scans are performed using dose optimization technique as appropriate and may include automated exposure control or mA/KV adjustment according to patient size. FINDINGS: A pulmonary embolus is not seen. A thoracic aortic aneurysm is not noted. A pleural effusion is not seen. A pericardial effusion is not seen. Moderate patchy ground-glass opacities within the lungs IMPRESSION: Negative for a pulmonary embolism. Moderate patchy ground-glass opacities within the lungs can be seen with pneumonia can be seen with Covid pneumonia Follow-up chest x-ray 03/03/2021: FINDINGS: Similar widespread bilateral airspace disease with areas of more confluent disease in the left mid lung and right lung base. The heart size is within normal limits.No acute osseous abnormality. No significant pleural effusions or pneumothorax. IMPRESSION: Unchanged widespread bilateral airspace disease likely representing multifocal pneumonia with or without edema. Physical Exam: GENERAL: The patient is a well-developed, well-nourished, in no apparent distress. Alert and oriented x3. VITAL SIGNS: Reviewed HEENT: Neck supple NECK: Supple. No carotid bruits. No lymphadenopathy or thyromegaly. LUNGS: Clear anteriorly. Patient appears comfortable. Currently on 6 L per nasal cannula. HEART: Regular rate and rhythm noted on monitor. ABDOMEN: Soft, nontender, and nondistended. Positive bowel sounds. No hepatosplenomegaly was noted. Patient morbidly obese. EXTREMITIES: Without any cyanosis, clubbing, rash, lesions or peripheral edema. NEUROLOGIC: The patient is oriented to person, place and time. Strength and sensation are grossly intact. Face is symmetric. SKIN: Normal color, turgor and temperature. No ulcerations or rashes noted. Impression: Dyspnea, fatigue, nausea, diarrhea secondary to bilateral Covid pneumonia with hypoxia, unvaccinated Prediabetes Elevated liver function suspect underlying fatty liver disease Hypothyroidism Depression Obesity Plan: Dyspnea, fatigue, nausea, diarrhea secondary to bilateral Covid pneumonia with hypoxia, unvaccinated: Patient overall stable and continues to slowly improve. Currently on 6 L. Continue to wean off. CRP and ferritin improved. Continue IV steroids and supplementation. Continue baricitinib. Continue to monitor labferritin, CRP closely. Case discussed with pulmonology. If able to decrease oxygen use less than 4 L will consider discharge in the next 48 hours. Prediabetes: Blood sugar stable. No need to monitor accucheck. Continue Metformin. Elevated liver function suspect underlying fatty liver disease: Suspect underlying fatty liver disease. Will monitor liver function test closely. Hypothyroidism: Continue medication-Synthroid 75 mcg daily. Depression: Continue to home medicationLexapro. Obesity BMI 57: Continue lifestyle modification education. Code Status: Full Code DVT prophylaxis: Eliquis Advanced Care Planning-30 minutes: Pursue home at discharge.
[2021-03-11] MEDS: METHYLPREDNISOLONE 40 MG INJ IV SCH ×2 (00:04→08:08)
[2021-03-11 05:16] LABS: Absolute Lymphocytes (CBC) 0.6 K/uL (0.7-4.9); Basophils % 0.3 % (0-1.3); Hematocrit 38.4 % (36.0-45.0); Lymphocytes % 5.2 % (15.3-44.8); MPV 7.8 fL (7.6-11.3); RBC Red Blood Cell Count 4.52 M/uL (3.86-4.86)
[2021-03-11 06:09] LABS: ALT/SGPT 84 U/L (12-78); AST/SGOT 32 U/L (15-37); Alkaline Phosphatase 84 U/L (45-117); BUN Blood Urea Nitrogen 14 mg/dL (7-18); Bicarbonate 29 mmol/L (21-32); Glucose Level 98 mg/dL (74-106); Potassium 3.9 mmol/L (3.5-5.1); Protein, Total 6.9 g/dL (6.4-8.2); Sodium Level 140 mmol/L (136-145)
[2021-03-11 06:10] LABS: Albumin 2.9 g/dL (3.4-5.0); C-Reactive Protein 4.08 mg/L (<3.00); Magnesium 2.6 mg/dL (1.8-2.4)
[2021-03-11] MEDS ORDERED: POTASSIUM CL SA 10 MEQ TAB PO ONE (06:10)
[2021-03-11 06:29] LABS: Bilirubin Total 0.4 mg/dL (0.2-1.0); Ferritin 150.2 ng/mL (8-388)
[2021-03-11] MEDS: VITAMIN D 1000 UNIT TAB PO SCH (08:07)
[2021-03-11] MEDS: ASPIRIN EC 81 MG TAB PO SCH (08:07)
[2021-03-11] MEDS: ESCITALOPRAM 20 MG TAB PO SCH (08:08)
[2021-03-11] MEDS: METFORMIN HCL 500 MG TAB PO SCH (08:08)
[2021-03-11] MEDS: LEVOTHYROXINE SOD 0.075 MG TAB PO SCH (08:08)
[2021-03-11] MEDS: ZINC SULFATE 220 MG CAP PO SCH (08:08)
[2021-03-11] MEDS: THIAMINE HCL 100 MG TABLET PO SCH (08:08)
[2021-03-11] MEDS: ASCORBIC ACID 500 MG TABLET PO SCH (08:08)
[2021-03-11] MEDS: APIXABAN 5 MG TABLET PO SCH (08:08)
[2021-03-11] MEDS: LACTOBACILLUS/ACIDOPHILUS TAB PO SCH (08:08)
[2021-03-11] MEDS: FAMOTIDINE 20 MG TAB PO SCH (08:08)
[2021-03-11] MEDS: TOPIRAMATE 25 MG TAB PO SCH (08:09)
[2021-03-11] MEDS: BARICITINIB 2 MG TABLET PO SCH (08:09)
[2021-03-11 08:54] VITALS: BP 127/81; TEMP 96.5
[2021-03-11 09:33] VITALS: O2SAT 92
--- NOTE | 2021-03-11 09:37 | P.DS ---
Admission Date: 02/28/21 Discharge Date: 03/11/21 Primary Care Provider: Dr. Castellanos Disposition: ROUTINE DISCHARGE Discharge Condition: GOOD Reason for Admission: Resp failure Consultations: Pulmonary-Dr. Huerta Procedures: CT scan: COMPARISON: February 27, 2021 chest x-ray TECHNIQUE: Dynamically enhanced axial 3 mm thick images of the chest were obtained during administration of <100> mL Isovue 370 IV contrast. Coronal and oblique reconstruction images were generated and reviewed. Exam utilizes a protocol for optimal evaluation of pulmonary arterial tree. Maximum intensity projections 3D imaging was utilized All CT scans are performed using dose optimization technique as appropriate and may include automated exposure control or mA/KV adjustment according to patient size. FINDINGS: A pulmonary embolus is not seen. A thoracic aortic aneurysm is not noted. A pleural effusion is not seen. A pericardial effusion is not seen. Moderate patchy ground-glass opacities within the lungs IMPRESSION: Negative for a pulmonary embolism. Moderate patchy ground-glass opacities within the lungs can be seen with pneumonia can be seen with Covid pneumonia Follow-up chest x-ray 03/03/2021: COMPARISON: Chest Single View dated 03/07/2021; Chest Single View dated 03/06/2021; Chest Single View dated 03/05/2021; Chest Single View dated 03/03/2021; Chest For Pe Angio dated 02/27/2021 FINDINGS: Grossly similar appearance of bilateral widespread interstitial and airspace disease. Stable size of the cardiac silhouette.No acute osseous abnormality. No significant pleural effusions or pneumothorax. IMPRESSION: Unchanged widespread bilateral airspace disease which likely reflects multifocal pneumonia. Medical Problem List: Dyspnea, fatigue, nausea, diarrhea secondary to bilateral Covid pneumonia with hypoxia, unvaccinated Prediabetes Elevated liver function suspect underlying fatty liver disease Hypothyroidism Depression Obesity Brief History of Present Illness: 45-year-old with history of obesity, prediabetes, depression and hypothyroidism. Patient presented with increasing shortness of breath, cough. Patient also reports some nausea, diarrhea. Multiple family member sick with Covid 19. She reported increased shortness of breath with exertion. Increased fatigue, body aches. Her symptoms were worsening so she came to the ER for further evaluation. She is unvaccinated. In the ER patient was evaluated. Vital signs stable. Upon ambulation patient had some desaturations below 88%. Lab White count 6.0, hemoglobin 14. Bili count 220. Sodium 139, potassium 3.3. BUN of 8, creatinine 0.83 with a GFR 75. Glucose 101. AST 147, ALT 107, alk phos 141. Troponin 0.3. C-reactive protein 78, ferritin 730. Patient positive for Covid. D-dimer 540. CT scan reveals moderate Covid pneumonia. Negative for pulmonary believes him. Patient given IV Solu-Medrol in the emergency room. Patient admitted for observation. Hospital Course: Patient presented with dyspnea, fatigue, nausea and diarrhea secondary to bilateral COVID-19 pneumonia with hypoxia. Patient is unvaccinated. Patient required high flow oxygen, IV steroid, supplementation and baricitinib. During the course of her stay her condition improved. Patient was able to be weaned to nasal cannula. At discharge she is without significant chest pain or shortness of breath. Currently on 4 L per nasal cannula. At discharge she will continue with home oxygen to maintain sats above 93%. She is to continue with 4 L per nasal cannula. This can be weaned down with the help of pulmonology or her PCP. At discharge she will continue with prednisone 20 mg 1 pill twice daily for 7 days and 1 pill once daily for 7 days. The patient will be provided Tessalon Perles 100 mg 3 times a day as needed for cough. It is recommended that she continue with Eliquis 5 mg 1 pill twice daily due to risk of DVT. She will continue with this for 14 days. This can be transitioned to aspirin 81 mg daily. At discharge she will also continue with vitamin C 500 mg 1 pill 3 times a day, vitamin D 2000 units 1 pill daily, thiamine 100 mg 1 pill twice daily and zinc 220 mg daily. At discharge she will continue with Covid instructions including quarantine for at least 10 days. Patient will need to limit her activities and monitor her oxygen saturations closely. Recommend to maintain oxygen saturations above 90%. She is to continue with incentive spirometer, proning, facemask use, handwashing and social distancing. Patient will follow up with pulmonology within 1 week to follow-up this hospitalization and continue her care. Recommend follow-up with PCP in 1 week to follow his hospitalization. Patient with prediabetes. At discharge she will continue with metformin 500 mg daily. Recommend to maintain blood sugar less than 140 fasting and less than 200 after meals. Recommend to recheck hemoglobin A1c every 3 months to monitor progress. Further adjustment in medication can be done by her PCP. Patient with elevated liver function. This is likely related to her fatty liver. Liver function is now stable. Patient with hypothyroidism. At discharge she will continue with levothyroxine 75 mcg daily. Patient with depression. At discharge she will continue with Lexapro 20 mg daily. Patient with obesity, BMI 56. Lifestyle modification education provided. Patient may continue with Topamax 25 mg daily. Vital Signs/Physical Exam: Temp Pulse Resp BP Pulse Ox 96.5 F L 52 24 H 127/81 95 03/11/21 08:00 03/11/21 08:00 03/11/21 08:00 03/11/21 08:00 03/11/21 08:00 General: Alert, In no apparent distress, Oriented x3, Cooperative HEENT: Atraumatic Neck: Supple Respiratory: Clear to auscultation bilaterally, Normal air movement, Other (Currently on 4 L per nasal cannula) Cardiovascular: Normal pulses, Regular rate/rhythm, Other (4 L/min) Gastrointestinal: Normal bowel sounds, No tenderness, No masses, No rebound, No guarding Musculoskeletal: No erythema, No tenderness, No warmth Integumentary: No tenderness/swelling Neurological: Normal speech, Normal strength at 5/5 x4 extr, Normal tone, Normal affect Laboratory Data at Discharge: WBC 12.00 K/uL (4.3-10.9) H 03/11/21 04:30 Hgb 13.2 g/dL (12.0-15.0) 03/11/21 04:30 Hct 38.4 % (36.0-45.0) 03/11/21 04:30 Plt Count 560 K/uL (152-406) H 03/11/21 04:30 PT 13.5 SECONDS (9.5-12.5) H 02/27/21 11:53 INR 1.17 02/27/21 11:53 Sodium 140 mmol/L (136-145) 03/11/21 04:30 Potassium 3.9 mmol/L (3.5-5.1) 03/11/21 04:30 BUN 14 mg/dL (7-18) 03/11/21 04:30 Creatinine 0.53 mg/dL (0.55-1.3) L 03/11/21 04:30 Glucose 98 mg/dL (74-106) 03/11/21 04:30 Magnesium 2.6 mg/dL (1.8-2.4) H 03/11/21 04:30 Total Bilirubin 0.4 mg/dL (0.2-1.0) 03/11/21 04:30 AST 32 U/L (15-37) 03/11/21 04:30 ALT 84 U/L (12-78) H 03/11/21 04:30 Alkaline Phosphatase 84 U/L (45-117) 03/11/21 04:30 Home Medications: Escitalopram [Lexapro*] 20 mg PO DAILY 02/27/21 Levothyroxine [Synthroid*] 0.075 mg PO DAILY 02/27/21 Metformin HCl 500 mg PO DAILY 02/27/21 Topiramate 25 mg PO DAILY 02/27/21 Apixaban [Eliquis] 5 mg PO BID #14 tablet 03/11/21 Ascorbic Acid [Vitamin C*] 500 mg PO TID #90 tablet 03/11/21 Benzonatate [Tessalon Perle*] 100 mg PO TID PRN #10 cap 03/11/21 Cholecalciferol (Vitamin D3) [Vitamin D 1000 Iu Tab*] 2,000 unit PO DAILY #60 tab 03/11/21 Thiamine HCl [Vitamin B-1*] 100 mg PO BID #60 tablet 03/11/21 Zinc Sulfate [Zinc Sulfate*] 220 mg PO DAILY #30 cap 03/11/21 predniSONE [Prednisone*] 20 mg PO SEECOM #21 tab 03/11/21 New Medications: Apixaban [Eliquis] 5 mg PO BID #14 tablet predniSONE [Prednisone*] 20 mg PO SEECOM #21 tab Benzonatate [Tessalon Perle*] 100 mg PO TID PRN #10 cap PRN Reason: Cough Thiamine HCl [Vitamin B-1*] 100 mg PO BID #60 tablet Ascorbic Acid [Vitamin C*] 500 mg PO TID #90 tablet Cholecalciferol (Vitamin D3) [Vitamin D 1000 Iu Tab*] 2,000 unit PO DAILY #60 tab Zinc Sulfate [Zinc Sulfate*] 220 mg PO DAILY #30 cap Physician Discharge Instructions: Patient presented with dyspnea, fatigue, nausea and diarrhea secondary to bilateral COVID-19 pneumonia with hypoxia. Patient is unvaccinated. Patient required high flow oxygen, IV steroid, supplementation and baricitinib. During the course of her stay her condition improved. Patient was able to be weaned to nasal cannula. At discharge she is without significant chest pain or shortness of breath. Currently on 4 L per nasal cannula. At discharge she will continue with home oxygen to maintain sats above 93%. She is to continue with 4 L per nasal cannula. This can be weaned down with the help of pulmonology or her PCP. At discharge she will continue with prednisone 20 mg 1 pill twice daily for 7 days and 1 pill once daily for 7 days. The patient will be provided Tessalon Perles 100 mg 3 times a day as needed for cough. It is recommended that she continue with Eliquis 5 mg 1 pill twice daily due to risk of DVT. She will continue with this for 14 days. This can be transitioned to aspirin 81 mg daily. At discharge she will also continue with vitamin C 500 mg 1 pill 3 times a day, vitamin D 2000 units 1 pill daily, thiamine 100 mg 1 pill twice daily and zinc 220 mg daily. At discharge she will continue with Covid instructions including quarantine for at least 10 days. Patient will need to limit her activities and monitor her oxygen saturations closely. Recommend to maintain oxygen saturations above 90%. She is to continue with incentive spirometer, proning, facemask use, handwashing and social distancing. Patient will follow up with pulmonology within 1 week to follow-up this hospitalization and continue her care. Recommend follow-up with PCP in 1 week to follow his hospitalization. Patient with prediabetes. At discharge she will continue with metformin 500 mg daily. Recommend to maintain blood sugar less than 140 fasting and less than 200 after meals. Recommend to recheck hemoglobin A1c every 3 months to monitor progress. Further adjustment in medication can be done by her PCP. Patient with elevated liver function. This is likely related to her fatty liver. Liver function is now stable. Patient with hypothyroidism. At discharge she will continue with levothyroxine 75 mcg daily. Patient with depression. At discharge she will continue with Lexapro 20 mg daily. Patient with obesity, BMI 56. Lifestyle modification education provided. Patient may continue with Topamax 25 mg daily. Diet: ADA Activity: Ad pascual Followup: Karissa Castellanos MD [Primary Care Provider] - Time spent managing pt's care (in minutes): 55
== END 2021-03-11 11:56 | disposition home or self-care (01) | DRG 177 ==
LOC: ER 10:45 → ERHOLD 15:22 → OBSVTOIN 02-28 12:11 → 3RD-ICU 03-04 15:35
PROVIDERS: ADMIT Family Medicine; ATTEND Family Medicine
DX: U07.1 COVID-19 (principal); J12.82 Pneumonia due to coronavirus disease 2019; J96.01 Acute respiratory failure with hypoxia; Z68.43 Body mass index [BMI] 50.0-59.9, adult; R19.7 Diarrhea, unspecified; R73.03 Prediabetes; K76.0 Fatty (change of) liver, not elsewhere classified; E03.9 Hypothyroidism, unspecified; F32.9 Major depressive disorder, single episode, unspecified; E66.01 Morbid (severe) obesity due to excess calories
CPT/HCPCS: 36415; 71045; 71275; 80048; 80053; 80076; 81003; 82728; 82805; 82947; 83036; 83735; 83880; 84132; 84145; 84439; 84443; 84484; 85025; 85379; 85610; 86140; 93005; 94002; 94003; 94010; 96361; 96374; 99285; G0378; J1650; J2920; J2930; J7030; Q9967; U0003